=== PATIENT | female | born 1980 | race Caucasian/White ===

== ENCOUNTER → 2020-01-27 10:33 | Outpatient (CLI) | payer OTHER, SELFPAY ==
--- NOTE | ~2020-01-27 | XR_ITS ---
EXAMINATION: XR knee LT 3V DATE: 01/27/2020 11:10 INDICATION: Left knee pain. TECHNIQUE: 3 views of left knee were obtained. COMPARISON: None. FINDINGS: Bone alignment is normal. No fracture. There is mild osteoarthritis of medial and patellofe moral compartments. There is a small knee joint effusion. IMPRESSION: 1. Mild left knee osteoarthritis. 2. Small left knee joint effusion. Reviewed, dictated and finalized at location A. IN[facility] OPERATOR
== END ==
PROVIDERS: PCP Family Medicine; Visit Provider Physician Assistant
DX: M17.12 Unilateral primary osteoarthritis, left knee (principal); M25.462 Effusion, left knee
CPT/HCPCS: 73562

== ENCOUNTER → 2020-03-18 16:16 | Outpatient (CLI) | payer OTHER, SELFPAY ==
--- NOTE | ~2020-03-18 | MR_ITS ---
EXAMINATION: MR knee LT wo con DATE: 03/18/2020 17:05 INDICATION: Left knee pain and swelling. TECHNIQUE: Magnetic resonance imaging (MRI) of the left knee was performed without intravenous contra st. Sequences included coronal PD-weighted FSE, coronal PD-weighted FS FSE, sagittal T2-weighted FSE , sagittal PD-weighted FS FSE and axial PD weighted fat saturated FSE. COMPARISON: None. FINDINGS: Medial compartment: Medial meniscus is normal. Mild partial thickness cartilage loss with smooth chondral surface along t he medial tibial plateau. Mild chondral surface regular date along the anterior weightbearing medial femoral condyle. Lateral compartment: Lateral meniscus is normal. Partial-thickness cartilage loss with smooth chondral surface along the l ateral aspect of the posterior weightbearing lateral femoral condyle. Patellofemoral compartment: Deep chondral ulceration with mild underlying cortical irregularity along the inferior aspect of the medial trochlea. Deep chondral fissuring along the medial patellar facet with minimal subarticular ed olga. Ligaments and tendons: Anterior and posterior cruciate ligaments are normal. The medial collateral ligament and fibular hoda ateral ligament complex are normal. The extensor mechanism is normal. The visualized medial and later al hamstring tendons as well as the iliotibial band are normal. Fluid: Moderate size joint effusion with extension of fluid into a 4.0 x 1.2 x 1.3 cm Garcia's cyst. No loose osteochondral bodies identified. Osseous/other: Normal marrow signal. No fracture or abnormal marrow replacing process. IMPRESSION: 1. 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 2. Moderate-sized left knee joint effusion. 3. Small Garcia's cyst. Reviewed, dictated and finalized at location A. [facility] OPERATOR IMPRESSION: 1. Tricompartmental osteoarthritis, mild in the medial and patellofemoral dustin rtments and minimal in the lateral compartment with regions of high-grade chond romalacia at the medial trochlea and medial patellar facet. 2. Moderate-sized left knee joint effusion. 3. Small Garcia's cyst.
== END ==
PROVIDERS: PCP Family Medicine; Visit Provider Orthopaedic Surgery
DX: M25.562 Pain in left knee (principal); M17.12 Unilateral primary osteoarthritis, left knee; M25.462 Effusion, left knee; M71.22 Synovial cyst of popliteal space [Baker], left knee
CPT/HCPCS: 73721

== ENCOUNTER 2021-10-01 16:43 | Emergency (ER) | payer OTHER, BC, SELFPAY ==
--- NOTE | ~2021-10-01 | XR_ITS ---
EXAMINATION: XR chest 2V DATE: 10/01/2021 17:07 INDICATION: Shortness of breath TECHNIQUE: PA and lateral views of the chest are obtained. COMPARISON: 09/21/2005 FINDINGS: The lungs are free of acute opacities. No pleural effusion or pneumothorax. The cardiomedia stinal silhouette is normal. The visualized bones and soft tissues are unremarkable. IMPRESSION: 1. No acute cardiopulmonary abnormality. Reviewed, dictated and finalized at location B.
[2021-10-01 16:54] VITALS: BP 116/74; PULSE 90; RESP 16; TEMP 36.6; O2SAT 99
--- NOTE | 2021-10-01 17:06 | ED.GENADULT ---
HPI - General Adult General Chief complaint: Chest Pain Stated complaint: trouble breathing, right shoulder pain Time Seen by Provider: 10/01/21 17:00 Source: patient Mode of arrival: ambulatory Limitations: no limitations History of Present Illness HPI narrative: 41 y/o female presented for c/o right upper chest pain with deep breaths. States it feels like the pleurisy pain she has had in the past. Pain is near collarbone and into the neck. Denies pain with shoulder movement, numbness, tingling or weakness of the arm. Reports covid 2 weeks ago, continues to have mild symptoms. Denies hemoptysis, sob, wheezing, nausea, vomiting, diarrhea, constipation, fever or chills. Taking ibuprofen for pain. Related Data Allergies Allergy/AdvReac Type Severity Reaction Status Date / Time amoxicillin Allergy Unknown rash Verified 07/30/21 11:18 cephalexin Allergy Unknown Nausea Verified 07/30/21 11:18 Penicillins Allergy Unknown Pt does Verified 07/30/21 11:18 not know reaction Review of Systems Review of Systems: CONSTITUTIONAL: Denies body aches, fever, chills, or sweats. EYES: Denies visual changes, redness, or discharge. ENT: Denies rhinorrhea, congestion, sore throat, or otalgia. CARDIOVASCULAR: Denies chest pain, palpitations, or edema. RESPIRATORY: Reports cough, denies sob, wheezing. GASTROINTESTINAL: Denies abdominal pain, nausea, vomiting, or diarrhea. MUSCULOSKELETAL: Denies back pain, joint pain, or myalgia. NEUROLOGIC: Denies headache All systems reviewed & are unremarkable except as noted in HPI and below PMFSH Past Medical History Medical History Arthritis of knee, left BMI 30.0-30.9,adult Left knee pain Panniculitis Surgical History Surgical History H/O thyroidectomy Family History Family History Grandparent Diabetes mellitus Family history of hypercholesterolemia Hypertension Family history of cardiovascular disease Malignant neoplasm of prostate Father Family history of hypercholesterolemia Hypertension Mother Family history of cardiovascular disease Family history of atrial fibrillation Other Family history of colitis Social History Social History Smoking status: Never smoker Alcohol intake: current Drinks per week: 3 Alcohol use details: wine, liquor 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 Gender identity (if verbalized by the patient): Female Comments At time of signature, I have reviewed and agree with nursing past medical, surgical, social and family history unless otherwise noted. Please see nursing chart for further information. There is no relevant family history pertinent to the presenting complaint Exam Narrative: GENERAL: Well-appearing EYES: EOMI. No redness or drainage. Conjunctivae normal. ENT: Mucous membranes pink and moist. NECK: Normal AROM. Supple. nontender. CHEST: No respiratory distress. Lungs clear to all bear. Nontender chest with palpation. HEART: Regular rate and rhythm. No murmur appreciated. ABDOMEN: Soft, nontender, nondistended, normal active bowel sounds. SKIN: Warm, dry, no rash. Capillary refill normal. Normal skin turgor. NEURO: Alert and oriented x3. Gait steady. Course Course Emergency Course: Patient is aware of diagnosis, understands and agrees to treatment plan. Anticipatory guidance given. Patient agrees to follow-up as directed and is aware of reasons to seek care at the emergency department. Portions of this record may have been created with voice recognition software Level of Care: Express Care Visit Vital Signs Vital signs: Vital Signs Temperature 97.9 F 10/01/21 16:54 Pulse Rate 90 10/01/21 16:54 Respiratory Rate 16 10/01/21 16:5
== END 2021-10-01 17:34 | disposition home or self-care (01) ==
PROVIDERS: Emergency Provider Nurse Practitioner Family
DX: R07.81 Pleurodynia (principal); M17.12 Unilateral primary osteoarthritis, left knee; E89.0 Postprocedural hypothyroidism; Z86.16 Personal history of COVID-19; F32.A Depression, unspecified
CPT/HCPCS: 71046; 99213; G0463

== ENCOUNTER 2022-01-05 18:39 | Emergency (ER) | payer BC, SELFPAY ==
[2022-01-05 18:47] VITALS: BP 121/78; PULSE 93; RESP 16; TEMP 36.3; O2SAT 100
--- NOTE | 2022-01-05 19:09 | ED.URI ---
HPI - URI/Sore Throat General Chief Complaint: Upper Respiratory Infection Stated Complaint: SORE THROAT/COUGH/CHEST TIGHTNESS/FEVER Time Seen by Provider: 01/05/22 19:10 Source: patient and RN notes reviewed Mode of arrival: ambulatory Limitations: no limitations History of Present Illness HPI Narrative: 41-year-old female presents concern for cough, sore throat, ear pain started Monday. She reports she has been taking DayQuil and NyQuil. She reports fever, aches, chills, sweats. She denies known sick contacts. MD elicited complaint: cough, sore throat and nasal congestion Related Data Allergies Allergy/AdvReac Type Severity Reaction Status Date / Time amoxicillin Allergy Unknown rash Verified 01/05/22 19:12 cephalexin Allergy Unknown Nausea Verified 01/05/22 19:12 Penicillins Allergy Unknown Pt does Verified 01/05/22 19:12 not know reaction Review of Systems Review of Systems: CONSTITUTIONAL: Reports malaise, chills, sweats, or fever. EYES: Denies visual changes, redness, or discharge. ENT: Reports rhinorrhea, congestion, sinus pain, otalgia and sore throat. CARDIOVASCULAR: Denies chest pain, palpitations, or edema. RESPIRATORY: Reports cough. Denies dyspnea. GASTROINTESTINAL: Denies abdominal pain, nausea, vomiting, diarrhea SKIN: Denies rash or itching. MUSCULOSKELETAL: Reports myalgia. NEUROLOGIC: Denies headache. All systems reviewed & are unremarkable except as noted in HPI and below PMFSH Past Medical History Medical History Arthritis of knee, left BMI 30.0-30.9,adult Left knee pain Panniculitis Surgical History Surgical History H/O thyroidectomy Family History Family History Grandparent Diabetes mellitus Family history of hypercholesterolemia Hypertension Family history of cardiovascular disease Malignant neoplasm of prostate Father Family history of hypercholesterolemia Hypertension Mother Family history of cardiovascular disease Family history of atrial fibrillation Other Family history of colitis Social History Social History Smoking status: Never smoker Alcohol intake: current Drinks per week: 3 Alcohol use details: wine, liquor 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 There is no relevant family history pertinent to the presenting complaint Exam Narrative: GENERAL: Well-appearing, well-nourished, and in no acute distress. HEAD: Normocephalic EYES: PERRLA, conjunctivae clear ENT: Nares clear, turbinates edematous and erythematous, clear discharge. Mucous membranes moist. TM pearly guerra with dull light reflex bilaterally; no tragal tenderness. Oropharynx not erythematous without lesions. Tonsils not enlarged and without exudate, no drooling, no hoarseness, no trismus, uvula midline. NECK: Supple. No lymphadenopathy CHEST: Clear to auscultation, breath sounds equal. No wheezing, rhonchi, rales, or stridor. No respiratory distress, speaks in full sentences. HEART: Regular rate and rhythm. No murmur heard. SKIN: Warm, dry, no rash. NEURO: Alert and oriented x3. PSYCH: Normal mood and affect Course Course Emergency Course: Patient is aware of diagnosis, understands and agrees to treatment plan. Anticipatory guidance given. Patient agrees to follow-up as directed and is aware of reasons to seek care at the emergency department. Portions of this record may have been created with voice recognition software Level of Care: Express Care Visit Vital Signs Vital signs: Vital Signs Temperature 97.4 F L 01/05/22 18:47 Pulse Rate 93 01/05/22 18:4
== END 2022-01-05 19:54 | disposition home or self-care (01) ==
PROVIDERS: Emergency Provider Nurse Practitioner; PCP Family Medicine
DX: J11.1 Influenza due to unidentified influenza virus with other respiratory manifestations (principal); M17.12 Unilateral primary osteoarthritis, left knee; E89.0 Postprocedural hypothyroidism
CPT/HCPCS: 87081; 87804; 87880; 99213; G0463

== ENCOUNTER 2022-11-22 08:10 | Outpatient (RCR) | payer BC, SELFPAY ==
[2022-11-22 08:11] VITALS: BMI 34.7
[2022-11-22 10:07] VITALS: BMI 34.7
== END 2023-02-07 08:39 | disposition home or self-care (01) ==
LOC: ANHDMC 08:10
PROVIDERS: PCP Family Medicine; Visit Provider Physician Assistant
DX: E66.09 Other obesity due to excess calories (principal); Z68.34 Body mass index [BMI] 34.0-34.9, adult; Z71.3 Dietary counseling and surveillance
CPT/HCPCS: 97802

== ENCOUNTER 2023-01-11 09:03 | Outpatient (CLI) | payer BC, SELFPAY ==
[2023-01-11 09:51] LABS: Kit Draw Collected
== END 2023-01-11 09:04 | disposition home or self-care (01) ==
LOC: ANHGOSHLAB 09:07
PROVIDERS: PCP Family Medicine
DX: D72.828 Other elevated white blood cell count (principal)
CPT/HCPCS: 36415

== ENCOUNTER 2023-02-14 08:17 | Outpatient (CLI) | payer BC, SELFPAY ==
[2023-02-14 12:31] LABS: Kit Draw Collected
== END 2023-02-14 08:18 | disposition home or self-care (01) ==
LOC: ANHGOSHLAB 08:24
PROVIDERS: PCP Family Medicine
DX: D72.828 Other elevated white blood cell count (principal)
CPT/HCPCS: 36415

== ENCOUNTER 2023-03-07 08:19 | Outpatient (CLI) | payer BC, SELFPAY ==
[2023-03-07 15:15] LABS: Kit Draw Collected
== END 2023-03-07 08:20 | disposition home or self-care (01) ==
LOC: ANHGOSHLAB 08:22
PROVIDERS: PCP Family Medicine
DX: D72.828 Other elevated white blood cell count (principal)
CPT/HCPCS: 36415

== ENCOUNTER 2023-03-30 08:15 | Outpatient (CLI) | payer BC, SELFPAY ==
[2023-03-30 21:48] LABS: Kit Draw Collected
== END 2023-03-30 08:16 | disposition home or self-care (01) ==
LOC: ANHGOSHLAB 08:19
PROVIDERS: PCP Family Medicine
DX: D72.828 Other elevated white blood cell count (principal)
CPT/HCPCS: 36415

== ENCOUNTER 2023-04-13 08:32 | Outpatient (CLI) | payer BC, SELFPAY ==
[2023-04-17 09:49] LABS: Kit Draw Collected
== END 2023-04-13 08:33 | disposition home or self-care (01) ==
LOC: ANHGOSHLAB 08:35
PROVIDERS: PCP Family Medicine
DX: D72.828 Other elevated white blood cell count (principal)
CPT/HCPCS: 36415

== ENCOUNTER 2023-05-02 08:09 | Outpatient (CLI) | payer BC, SELFPAY ==
[2023-05-05 12:54] LABS: Kit Draw Collected
== END 2023-05-02 08:10 | disposition home or self-care (01) ==
LOC: ANHGOSHLAB 08:11
PROVIDERS: PCP Family Medicine
DX: D72.828 Other elevated white blood cell count (principal)
CPT/HCPCS: 36415

== ENCOUNTER 2023-08-16 13:33 | Outpatient (RCR) | payer BC, SELFPAY ==
[2023-05-29 15:55] LABS: Kit Draw Collected
[2023-07-06 20:01] LABS: Kit Draw Collected
[2023-07-31 19:40] LABS: Kit Draw Collected
[2023-08-16 15:58] LABS: Kit Draw Collected
== END 2023-08-27 23:59 | disposition home or self-care (01) ==
LOC: ANHGOSHLAB 13:33
PROVIDERS: PCP Family Medicine
DX: D72.828 Other elevated white blood cell count (principal)
CPT/HCPCS: 36415

== ENCOUNTER 2023-10-19 15:21 | Outpatient (CLI) | payer BC, SELFPAY ==
[2023-10-20 12:52] LABS: Kit Draw Collected
== END 2023-10-19 15:22 | disposition home or self-care (01) ==
LOC: ANHGOSHLAB 15:23
PROVIDERS: PCP Family Medicine
DX: Z76.89 Persons encountering health services in other specified circumstances (principal)
CPT/HCPCS: 36415

== ENCOUNTER 2023-11-20 13:08 | Outpatient (RCR) | payer BC, SELFPAY ==
[2023-10-20 12:52] LABS: Kit Draw Collected
[2023-11-21 08:00] LABS: Kit Draw Collected
== END 2024-01-17 23:59 | disposition home or self-care (01) ==
LOC: ANHGOSHLAB 13:08
PROVIDERS: PCP Family Medicine
DX: D72.828 Other elevated white blood cell count (principal)
CPT/HCPCS: 36415

== ENCOUNTER 2024-02-19 12:34 | Outpatient (RCR) | payer BC, SELFPAY ==
[2024-02-19 17:02] LABS: Kit Draw Collected
== END 2024-05-19 23:59 | disposition home or self-care (01) ==
LOC: ANHGOSHLAB 12:34
PROVIDERS: PCP Family Medicine
DX: D72.828 Other elevated white blood cell count (principal)
CPT/HCPCS: 36415

== ENCOUNTER 2024-03-16 10:44 | Emergency (ER) | payer BC, SELFPAY ==
[2024-03-16 11:18] VITALS: BP 130/94; PULSE 96; RESP 16; TEMP 36.3; O2SAT 99
--- NOTE | 2024-03-16 11:30 | ED_ITS ---
HPI - Eye Problem General Chief complaint: Eye Problems Stated complaint: EYE REDNESS/SWELLING Time Seen by Provider: 03/16/24 11:20 Source: patient Mode of arrival: ambulatory Limitations: no limitations History of Present Illness HPI Narrative: Shayna is a 43-year-old female patient presenting to the clinic today with complaints of left eye redness and swelling for the past 2 days. Reports that she had a pustule on the lower eyelid earlier this week and that has gone away but now she has redness and swelling to the left upper eyelid with tenderness. No drainage. No changes in makeup. Denies any eye pain or visual change. No fever Related Data Home Medications ?Medication ?Instructions ?Recorded ?Confirmed ?Last Taken ?Type ferrous sulfate 325 mg (65 mg 325 mg PO DAILY 03/09/23 01/25/24 Unknown History iron) tablet azelaic acid 15 % topical gel topical 01/25/24 01/25/24 Unknown History hydroxychloroquine 200 mg tablet mg PO 01/25/24 01/25/24 Unknown History leuprolide 3.75 mg intramuscular 3.75 mg IM MONTHLY 01/25/24 01/25/24 Unknown History syringe kit (Lupron Depot) levothyroxine 150 mcg tablet mcg PO 01/25/24 01/25/24 Unknown History metformin 500 mg tablet,extended mg PO 01/25/24 01/25/24 Unknown History release 24 hr prednisone 10 mg tablet mg PO 01/25/24 01/25/24 Unknown History tacrolimus 1 mg capsule, mg PO 01/25/24 01/25/24 Unknown History immediate-release Allergies Allergy/AdvReac Type Severity Reaction Status Date / Time amoxicillin Allergy Mild rash Verified 03/16/24 11:26 cephalexin Allergy Mild Rash Verified 03/16/24 11:26 Penicillins Allergy Mild Rash Verified 03/16/24 11:26 doxycycline AdvReac Intermediate Diarrhea Verified 03/16/24 11:26 Review of Systems Review of Systems: Pertinent positives per HPI. Patient denies any fever, chills, rash, headache, visual changes, dizziness, cough, shortness of breath, chest pain, palpitations, nausea, vomiting, diarrhea, constipation, abdominal pain, or any urinary issues. PMFSH Past Medical History Medical History IBS (irritable colon syndrome) Hx of erythema nodosum Panniculitis Arthritis of knee, left Knee effusion, left Surgical History Surgical History History of unilateral salpingectomy L laparoscopic/ endometriosis H/O thyroidectomy Family History Family History Grandparent Diabetes mellitus Family history of hypercholesterolemia Hypertension Family history of cardiovascular disease Malignant neoplasm of prostate Father Family history of hypercholesterolemia Hypertension Mother Family history of cardiovascular disease Family history of atrial fibrillation Other Family history of colitis Social History Social History Smoking status: Never smoker Alcohol intake: current Drinks per week: 3 Alcohol use details: wine, liquor Substance use type: does not use Lack of Transportation: No Lack of Food: Never True Current Housing: I Have Housing Concerned About Future Housing: No Difficulty Paying Gas/Electric Bills: No Difficulty Paying for Meds: No Currently Unemployed: No Education: Master's Degree or Higher Difficulty w/ Childcare or Family Care: No Living arrangements: with family Occupation/Education: occupation Additional occupation/education comments: [employer], [employer] Gender identity (if verbalized by the patient): Female Spiritual care concerns: No Comments At the time of my signature, I reviewed and agree with the nursing past medical, surgical, social, and family history. There is no relevant family history pertinent to the patient complaint. Exam Narrative: General: Well-developed, well nourished, in no apparent distress Head: Normocephalic, atraumatic Eyes: Pupils equally round and reactive to light bilaterally, EOM intact, sclera and conjunctive clear, no discharge, left upper eyelid red and swollen with tenderness to palpation over a external stye to the left upper lateral eyelid Ears: TMs intact and clear, ear canals clear, no drainage, grossly hearing normal. Nose: Nares patent, no discharge, no inflammation, no sinus tenderness. Mouth: Oral pharynx without lesions or masses, good dentition, MMM. Neck: Supple, trachea midline, no enlargement of anterior or posterior cervical nodes, no thyroid masses or goiter palpable. Cardio: Regular rate and rhythm, s1 and s2 normal, no murmur appreciated. Resp: Clear to auscultation bilaterally, no rhonchi, rales, wheezing or rubs Course Course Emergency Course: Portions of this record may have been created with voice recognition software. Level of Care: Express Care Visit Vital Signs Vital signs: Vital Signs Temperature 36.3 C L 03/16/24 11:18 Pulse Rate 96 03/16/24 11:18 Respiratory Rate 16 03/16/24 11:18 Blood Pressure 130/94 H 03/16/24 11:18 Pulse Oximetry 99 03/16/24 11:18 Temperature 36.3 C L 03/16/24 11:18 Pulse Rate 96 03/16/24 11:18 Respiratory Rate 16 03/16/24 11:18 Blood Pressure 130/94 H 03/16/24 11:18 Pulse Oximetry 99 03/16/24 11:18 Vital signs reviewed MDM - Eye Problem MDM Narrative Medical decision making narrative: At the time of visit patient is resting comfortably on the exam table. Patient appears to be nontoxic. Plan: I suspect patient has a her outer eyelid. Prescription for E-Mycin ointment was sent to the pharmacy. Supportive measures were discussed with the patient and they voiced understanding discharge instructions and agrees to treatment plan. Return precautions reviewed Differential Diagnosis Differential diagnosis: Likely corneal abrasion, conjunctivitis, acute iritis, hyphema, periorbital cellulitis, subconjunctival hemorrhage, glaucoma, corneal ulcer, ruptured globe and other (stye) Discharge Plan Discharge Clinical Impression: External hordeolum Qualifiers: Laterality: left Eyelid: upper Qualified Code(s): H00.014 - Hordeolum externum left upper eyelid Patient Disposition: Home, Self-Care Condition: Stable Instructions: Antibiotic Minnie, Stephanie (ED) Additional Instructions: Practice good hand washing techniques Avoid touching eyes Instill eye ointment as prescribed May use warm moist washcloth 4 times daily If eyes are matted shut-do not pry eyes open-use a warm moist cloth to loosen matting and wipe matter away from eye May take Tylenol/Motrin as needed for pain or fever May take Benadryl as needed for itching/swelling Follow-up with your PCP in 3-5 days if symptoms persist or sooner if they worsen Go to the emergency room if you develop any fever that is not controlled by Tylenol or Motrin, loss of vision, eye pain, increase eye swelling,visual changes, headache, confusion, lethargy, weakness, chest pain, or shortness of breath. Patient Language: Welsh Prescriptions: New erythromycin 5 mg/gram (0.5 %) ointment 0.5 inch EACH EYE TID 7 Days Qty: 3.5 0RF No Action metformin 500 mg tablet extended release 24 hr PO tacrolimus 1 mg capsule PO hydroxychloroquine 200 mg tablet PO prednisone 10 mg tablet PO levothyroxine 150 mcg tablet PO azelaic acid 15 % gel topical Lupron Depot 3.75 mg syringe kit 3.75 mg IM MONTHLY sertraline 100 mg tablet 100 mg PO DAILY Qty: 90 3RF ferrous sulfate 325 mg (65 mg iron) tablet 325 mg PO DAILY Follow-up/Referrals: Renee Abdalla MD [Primary Care Provider] - Time of Disposition: 11:32 Quality NIHSS Nursing Documentation ED NIHSS nursing documentation: reviewed/agree
== END 2024-03-16 11:35 | disposition home or self-care (01) ==
PROVIDERS: Emergency Provider Nurse Practitioner Family; PCP Family Medicine
DX: H00.014 Hordeolum externum left upper eyelid (principal); M17.12 Unilateral primary osteoarthritis, left knee; E89.0 Postprocedural hypothyroidism
CPT/HCPCS: 99213; G0463

== ENCOUNTER 2024-07-09 12:12 | Outpatient (CLI) | payer BC, SELFPAY ==
--- NOTE | ~2024-07-09 | XR_ITS ---
EXAMINATION: XR chest 2V 07/09/2024 12:24 INDICATION: Diverticulitis PROCEDURE: 2 view chest COMPARISON: Comparison to multiple prior studies sequentially, with oldest reviewed study dated 09/20. FINDINGS: The lungs are clear. The cardiomediastinal silhouette is within normal limits. There are no pleural effusions. There is no pneumothorax suspected. IMPRESSION: 1: NO ACUTE CARDIOPULMONARY DISEASE. Reviewed, dictated and finalized at location A.
== END 2024-07-09 12:13 | disposition home or self-care (01) ==
LOC: GOSHIMG 12:13
DX: M79.3 Panniculitis, unspecified (principal); J45.909 Unspecified asthma, uncomplicated; R21 Rash and other nonspecific skin eruption
CPT/HCPCS: 71046

== ENCOUNTER 2024-08-15 13:33 | Outpatient (RCR) | payer BC, SELFPAY | END 2024-09-10 23:59 | disposition home or self-care (01) | LOC: ANHGOSHLAB 13:33 | PROVIDERS: PCP Family Medicine | DX: D72.828 Other elevated white blood cell count (principal) | CPT/HCPCS: 36415 ==

== ENCOUNTER 2024-09-12 13:45 | Outpatient (RCR) | payer BC, SELFPAY | END 2024-12-11 23:59 | disposition home or self-care (01) | LOC: ANHGOSHLAB 13:45 | PROVIDERS: PCP Family Medicine | DX: D72.828 Other elevated white blood cell count (principal) | CPT/HCPCS: 36415 ==

== ENCOUNTER 2024-11-04 13:57 | Outpatient (CLI) | payer BC, SELFPAY ==
--- OUTSIDE RECORDS SUMMARY | 2024-07-04 09:00 | XMS_ITS ---
Author Organization [facility] [employer] [facility] [employer] [employer] Address [address] [facility] [address] [place], [place] [id number] Care Team Providers Care Croze Machine Operator Name Role Phone KELLEY GARCIA MD Primary Care Provider Unav ailable Peter, Akgun Unavailable [phone] Zobrist, Marj Unavailable [phone] ALLERGIES Allergen (clinical drug ingredient) Drug/Non Drug Allergy documented on EMR Reaction Allergy Type Onset Date Status amoxicillin amoxicillin Rash Drug Allergy Act carmen doxycycline doxycycline Severe diarrhea Drug Allergy Active Keflex (uncoded) Nausea/vomiting Allergy Active Penicillin (uncoded) Rash Allergy Active RESULTS Component Value Reference Range Notes Complement C4, Serum Reviewed date:07/18/2024 02:49:43 PM Interpretation: Performing Lab:[employer], [address] [facility], Phone - [phone], Director - Piyush Notes/Report: Complement C4, Serum 25 12-38 mg/dL CBC With Differential/Platel et Reviewed date:07/19/2024 09:53:13 AM Interpretation: Performing Lab:[employer], [address] [facility], Phone - [phone], Director - Piyush Notes/Report: WBC 11.4 3.4-10.8 x10E3/uL RBC 4.08 3.77-5.28 x10E6/uL Hemoglobin 12.1 11.1-15.9 g/dL Hematocrit 37.1 34.0-46.6 % MCV 91 79-97 fL MCH 29.7 26.6-33.0 pg MCHC 32.6 31.5-35.7 g/dL RDW 12.8 11.7-15.4 % Platelets 530 150-450 x10E3/uL Neutrophils 86 Not Estab. % Lymphs 11 Not Estab. % Monocytes 2 Not Estab. % Eos 0 Not Estab. % Basos 1 Not Estab. % Immature Cells Neutrophils (Absolute) 9.8 1.4-7.0 x10E3/uL Lymphs (Absolute) 1.3 0.7-3.1 x10E3/uL Monocytes(Absolute) 0.2 0.1-0.9 x10E3/uL Eos (Absolute) 0.0 0.0-0.4 x10E3/uL Baso (Absolute) 0.1 0.0-0.2 x10E3/uL Immature Granulocytes 0 Not Estab. % Immature Grans (Abs) 0.0 0.0-0.1 x10E3/uL NRBC Hematology Comments: Sed Rate - Westergren Reviewed date:07/18/2024 02:49:43 PM Interpretation: Performing Lab:[address], Phone - [phone], Director - [facility] Notes/Report: Sedimentation Rate-Westergren 14 0-32 mm/hr Complement C3, Serum Reviewed date:07/18/2024 02:49:43 PM Interpretation: Performing Lab:[address], Phone - [phone], Director - [facility] Notes/Report: Complement C3, Serum 127 82-167 mg/dL Rheumatoid Arthritis Factor Reviewed date:07/18/2024 02:49:43 PM Interpretation: Performing Lab:[address], Phone - [phone], Director - [facility] Notes/Report: Rheumatoid Factor (RF) <10.0 <14.0 IU/mL C-Reactive Protein, Quant Reviewed date:07/18/2024 02:49:43 PM Interpretation: Performing Lab:[address], Phone - [phone], Director - [facility] Notes/Report: C-Reactive Protein, Quant 2 0-10 mg/L RUTH,transfer serum, temp Reviewed date:07/18/2024 02:49:43 PM Interpretation: [facility]forming [facility], [address] [place] [address], Phone - [phone], Director - [facility] Notes/Report: RUTH, Serum 65 14-82 U/L Anticardiolip Ab, IgA/G/M, Q n Reviewed date:07/18/2024 02:49:43 PM Interpretation: Performing Lab:[facility], [address] [place] [address], Phone - [phone], Director - [facility] Notes/Report: Anticardiolipin Ab,IgG,Qn <9 0-14 GPL U/mL Negative: <15 Indeterminate: 15 - 20 Low-Med Positive: >20 - 80 High Positive: >80 Anticardiolipin Ab,IgM,Qn <9 0-12 MPL U/mL Negative: <13 Indeterminate: 13 - 20 Low-Med Positive: >20 - 80 High Positive: >80 Anticardiolipin Ab,IgA,Qn <9 0-11 APL U/mL Negative: <12 Indeterminate: 12 - 20 Low-Med Positive: >20 - 80 High Positive: >80 Beta-2 Glycoprotein I Ab,G,A ,M Reviewed date:07/18/2024 02:49:43 PM Interpretation: Performing Lab:[facility], [address] [place] [address], Phone - [phone], Director - [facility] Notes/Report: Beta-2 Glycoprotein I Ab, IgG <9 0-20 GPI IgG units The reference interval reflects a 3SD or 99th percentile interval, which is thought to represent a potentially clinically significant result in accordance with the International Consensus Statement on the classification criteria for definitive antiphospholipid syndrome (APS). J Thromb Haem 2006;4:295-306. Beta-2 Glycoprotein I Ab, IgA <9 0-25 GPI IgA units The reference interval reflects a 3SD or 99th percentile interval, which is thought to represent a potentially clinically significant result in accordance with the International Consensus Statement on the classification criteria for definitive antiphospholipid syndrome (APS). J Thromb Haem 2006;4:295-306. Beta-2 Glycoprotein I Ab, IgM <9 0-32 GPI IgM units The reference interval reflects a 3SD or 99th percentile interval, which is thought to represent a potentially clinically significant result in accordance with the International Consensus Statement on the classification criteria for definitive antiphospholipid syndrome (APS). J Thromb Haem 2006;4:295-306. CCP IgG Antibodies Reviewed date:07/18/2024 02:49:43 PM Interpretation: Performing Lab:[facility], Phone - [phone], Director - [facility] Notes/Report: Anti-CCP Ab, IgG/IgA 8 0-19 units Negative <20 Weak positive 20 - 39 Moderate positive 40 - 59 Strong positive >59 Comp. Metabolic Panel (14) Reviewed date:07/18/2024 02:49:56 PM Interpretation: Performing Lab:[facility], Phone - [phone], Director - [facility] Notes/Report: Glucose 172 70-99 mg/dL BUN 15 6-24 mg/dL Creatinine 0.97 0.57-1.00 mg/dL eGFR 75 >59 mL/min/1.73 BUN/Creatinine Ratio 15 9-23 Sodium 138 134-144 mmol/L Potassium 4.4 3.5-5.2 mmol/L Chloride 99 96-106 mmol/L Carbon Dioxide, Total 24 20-29 mmol/L Calcium 9.6 8.7-10.2 mg/dL Protein, Total 6.5 6.0-8.5 g/dL Albumin 4.4 3.9-4.9 g/dL Globulin, Total 2.1 1.5-4.5 g/dL Bilirubin, Total <0.2 0.0-1.2 mg/dL Alkaline Phosphatase 82 44-121 IU/L AST (SGOT) 15 0-40 IU/L ALT (SGPT) 12 0-32 IU/L CHHAYA Panel (CHHAYA+JUNIOR+Scl 70+Sj Troy+SjoSSB) Reviewed date:07/18/2024 02:51:09 PM Interpretation: Performing Lab:[facility], Phone - [phone], Director - [facility] Notes/Report: CHHAYA by IFA Rfx Titer/Pattern Negative Negative <1:80 Borderline 1:80 Positive >1:80 ICAP nomenclature: AC-0 For more information about Hep-2 cell patterns use ANApatterns.org, the official website for the International Consensus on Antinuclear Antibody (CHHAYA) Patterns (ICAP). GOVERNMENT PROGRAM MANAGER Antibodies <0.2 0.0-0.9 AI Priest Antibodies <0.2 0.0-0.9 AI Antiscleroderma-70 Antibodies <0.2 0.0-0.9 AI Sjogren's Anti-SS-A <0.2 0.0-0.9 AI Sjogren's Anti-SS-B <0.2 0.0-0.9 AI DS DNA-CRITHIDIA IFA W/REFLE X [facility] Reviewed date:07/18/2024 02:51:50 PM Interpretation: Performing Lab[facility] [place], [place] [address], Phone - [phone], Director - [facility] Notes/Report: dsDNA Crithidia luciliae IFA Negative Negative Urinalysis, Complete Reviewed date:07/18/2024 02:50:49 PM Interpretation: Performing Lab[facility] [place] [address], Phone - [phone], Director - [facility] Notes/Report: Specific [place] 1.011 1.005-1.030 pH 7.0 5.0-7.5 Urine-Color Yellow Yellow Appearance Clear Clear WBC Esterase Trace Negative Protein Negative Negative/Trace Glucose Negative Negative Ketones Negative Negative Occult Blood Negative Negative Bilirubin Negative Negative Urobilinogen,Semi-Qn 0.2 0.2-1.0 mg/dL Nitrite, Urine Negative Negative Microscopic Examination See below: Micr oscopic was indicated and was performed. Microscopic Examination WBC 0-5 0 - 5 /hpf RBC None seen 0 - 2 /hpf Epithelial Cells (non renal) >10 0 - 10 /hpf Epithelial Cells (renal) Casts None seen None seen /lpf Cast Type Crystals Crystal Type Mucus Threads Bacteria Few None seen/Few Yeast Trichomonas Comment Lupus Anticoag Confirm Consu lt Reviewed date:07/18/2024 02:51:43 PM Interpretation: Performing Lab[facility] [address] [facility], Phone - [phone], Director - [facility] Notes/Report: Prothrombin Time 11.1 Reference Range: 18 years and older: 9.1 - 12.0 INR 1.0 Reference Range: >1 month: 0.9 - 1.2 APTT 26.6 This test has not been validated for monitoring unfractionated heparin therapy. aPTT-based therapeutic ranges for unfractionated heparin therapy have not been established. Consider ordering Heparin anti-Xa (unfractionated). Reference Range: 18 years and older: 22.9 - 30.2 APTT 1:1 TECHNICAL ASST TNP Testing Not Indicated This test was developed and its performance characteristics determined by [facility]. It has not been cleared or approved by the US Food and Drug Administration. APTT 1:1 Saline TNP Testing Not Indicated This test was developed and its performance characteristics determined by [facility]. It has not been cleared or approved by the [place] Food and Drug Administration. Thrombin Time 19.4 Reference Range: 0.0 - 23.0 DRVVT Screen Seconds 30.5 Reference Range: <= 47.0 DRVVT Confirm Seconds TNP Testin g Not Indicated DRVVT Ratio TNP Testing Not Ind icated Hexagonal Phospholipid Neutral 2 This value is NEGATIVE. This is a qualitative assay and is therefore reported as positive for lupus anticoagulant or negative. The quantitative value is provided as an aid in diagnosis. Reference Range: 0 - 11 Platelet Neutralization 0.6 Reference Range: 0.0 - 3.0 This test was developed and its performance characteristics determined by [facility]. It has not been cleared or approved by the Food and Drug Administration. Anticardiolipin Ab, IgG <10 Reference Range: Negative: <15 Indeterminate: 15 - 20 Low to medium positive: >20 - 80 High positive: >80 Anticardiolipin Ab, IgM <10 Reference Range: Negative: <13 Indeterminate: 13 - 20 Low to medium positive: >20 - 80 High positive: >80 Beta-2 Glycoprotein I, IgG <10 The reference interval reflects a 3SD or 99th percentile interval. Reference Range: Negative: <21 Beta-2 Glycoprotein I, IgM <10 The reference interval reflects a 3SD or 99th percentile interval. Reference Range: Negative: <33 Beta-2 Glycoprotein I, IgA <10 The reference interval reflects a 3SD or 99th percentile interval. Reference Range: Negative: <26 LAC Interpretation A lupus anticoagulant is not detected. All antiphospholipid antibodies evaluated are normal. As antibody titers may fluctuate with time, repeat testing may be indicated. Please contact [facility] if further clarification is needed. Pathologist Interpretation TNP All results are within the adult reference range and therefore pathology interpretation is not indicated. Complement Component 5 Reviewed date:07/18/2024 02:50:54 PM Interpretation: Performing Lab:[facility], [address] [facility], Phone - [phone], Director - Piyush Notes/Report: Complement Component 5 16 7-20 mg/dL Normal C5 concentration suggests sufficient C5 protein level. In rare cases, C5 complement protein can be nonfunctional but present at normal levels. If clinically indicated, testing for C5 functional activity is suggested (test code [id number]). ANCA Profile Reviewed date:07/19/2024 10:08:21 AM Interpretation: Performing Lab:[facility], [address] [facility], Phone - [phone], [facility] Notes/Report: Anti-MPO Antibodies 1.3 0.0-0.9 units Anti-PR3 Antibodies <0.2 0.0-0.9 units Cytoplasmic (C-ANCA) <1:20 Neg:<1:20 titer Perinuclear (P-ANCA) <1:20 Neg:<1:20 titer The presence of positive fluorescence exhibiting P-ANCA or C-ANCA patterns alone is not specific for the diagnosis of Roacel's Granulomatosis (WG) or microscopic polyangiitis. Decisions about treatment should not be based solely on ANCA IFA results. The International ANCA Group Consensus recommends follow up testing of positive sera with both OH-3 and MPO-ANCA enzyme immunoassays. As many as 5% serum samples are positive only by EIA. Ref. AM J Clin Pathol 1999;111:507-513. Atypical pANCA <1:20 Neg:<1:20 titer The atypical pANCA pattern has been observed in a significant percentage of patients with ulcerative colitis, primary sclerosing cholangitis and autoimmune hepatitis. REASON FOR VISIT Joint pains MEDICATIONS Medication SIG (Take, Route, Frequency, Duration) Notes Start Date End Date Status vitamin E 400IU Active iron oral 10.5mg Active Vitamins as directed Active Lovenox 40 mg/0.4 mL as directed subcutaneously once a day Active Vitamin D 4,000IU Active magnesium glycinate 200 mg 2 tab(s) orally once a day Active DHEA 25 mg 1 cap(s) orally once a day Active Alpha Lipoic Acid 100 mg 1 cap(s) orally 2 times a day Active Nicotinamide Dietary Supplement 300mg Active fish oil oral EPA 600mg DHA 450mg Active sertraline 100 mg 1 tab(s) orally once a day Active CoQ10 100 mg 3 cap(s) orally once a day Active Curcumin 95 500 mg 1 cap(s) orally once a day Active Melatonin 5 mg 1 tab(s) orally once a day Active Metanx Vitamin B Complex 1 cap(s) orally once a day Active aspirin 81 mg 1 tab(s) orally once a day Active Probiotics orally as directed Active prednisone 10 mg 1 tab(s) orally once a day Active levothyroxine 137 mcg (0.137 mg) 1 tab(s) orally once a day Active metFORMIN 500 mg 1 tab(s) orally 2 ti mes a day Active Plaquenil 200 mg 1 tab(s) orally twic e a day Active Calcium 600 mg Activ e VITAL SIGNS BMI 36.21 kg/m2 07/04/2024 Blood pressure systolic 127 mm Hg 07/05/19 25 Blood pressure diastolic 82 mm Hg 025 Heart Rate 115 /min 07/04/2024 Height 64 in 07/04/2024 Weight 211 lbs 07/04/2024 Encounters Encounter Location Date Provider Diagnosis [facility] 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 On prednisone 10mg, and HCQ per GEOSPATIAL IMAGE ANALYST. Referred back to rule out CTD given facial rash. Prior serologies were negative for inflammatory arthropathy/CTD . Will re-evaluate today. Check chest Xray to rule out sarcoidosis. F/u scheduled for 10 days. 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 On prednisone 10mg, and HCQ per GEOSPATIAL IMAGE ANALYST. Referred back to rule out CTD given facial rash. Prior serologies were negative for inflammatory arthropathy/CTD . Will re-evaluate today. Check chest Xray to rule out sarcoidosis. F/u scheduled for 10 days. 07/04/2024 Facial rash (ICD-10 - R21) 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 On prednisone 10mg, and HCQ per GEOSPATIAL IMAGE ANALYST. Referred back to rule out CTD given facial rash. Prior serologies were negative for inflammatory arthropathy/CTD . Will re-evaluate today. Check chest Xray to rule out sarcoidosis. F/u scheduled for 10 days. 07/04/2024 Polyarthralgia (ICD-10 - M25.50) 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 On prednisone 10mg, and HCQ per GEOSPATIAL IMAGE ANALYST. Referred back to rule out CTD given facial rash. Prior serologies were negative for inflammatory arthropathy/CTD . Will re-evaluate today. Check chest Xray to rule out sarcoidosis. F/u scheduled for 10 days. PLAN OF TREATMENT Medication Medication Name Sig Start Date Stop Date Notes vitamin E 400IU iron oral 10.5mg Vitamins as directed Vitamin D 4,000IU magnesium glycinate 200 mg 2 tab(s) oral ly once a day DHEA 25 mg 1 cap(s) orally once a day Alpha Lipoic Acid 100 mg 1 cap(s) orally 2 times a day Nicotinamide Dietary Supplement 300mg fish oil oral EPA 600mg DHA 450mg sertraline 100 mg 1 tab(s) orally once a day CoQ10 100 mg 3 cap(s) orally once a day Curcumin 95 500 mg 1 cap(s) orally once a day Melatonin 5 mg 1 tab(s) orally once a day prednisone 10 mg 1 tab(s) orally once a day levothyroxine 137 mcg (0.137 mg) 1 tab(s) orally once a day metFORMIN 500 mg 1 tab(s) orally 2 times a day Plaquenil 200 mg 1 tab(s) orally twic e a day Pending Test Test Name Order Date ANCA Panel w/MPO/PR3 w/reflex to titer(D O NOT USE) 07/04/2024 X ray : Chest, PA Lateral- outside order 07/04/2024 Next Appt Details Follow Up: 2 Weeks, Reason: Progress Notes * Examination Category Sub-Category Detail Notes Category Not es General Constitutional: No acute distress HEENT: PERRLA, Neck supple, Normal sclerae and conjunctivae Abdomen: soft, no organomegal y or masses /Rectal: not done Skin: No cutaneous lesions . No subcutaneous nodules noted in the 4 extremities, erythema to bilateral cheeks Neurological: No focal neurologica l findings Heme/Lymphatic: No cervical, axillar y, or inguinal adenopathy Psych: Alert, oriented x 3, Normal affect Musculoskeletal: Normal strength. No muscle atrophy Joint Exam Shoulders No swelling. No tenderness. NROM. Elbows No swelling. No tend erness. NROM. Wrists No swelling. No tend erness. NROM. Hips No tenderness, joycelyn l ROM, no instability or deformity Knees No swelling, no tend erness, NROM. No instability or deformity Ankles No swelling, no tend erness, NROM., No instability or deformity. All MCPs No swelling, no tend erness, no deformity unless noted below. All PIPs No swelling, no tend erness, no deformity unless noted below. All DIPs No swelling, no tend erness, no deformity unless noted below. All MTPs No swelling, no tend erness, NROM, no deformity unless noted below. History and Physical Notes * HPI (History of Present Illness) Category Sub-Category Detail Notes Category Not es Rheumatology Joint pain Ayanna returns today for CE visit after being referred by GEOSPATIAL IMAGE ANALYST to rule out CTD. She has a hx of infertility. Multiple IVF failures. Currently treated with HCQ and Prednisone 10mg for hx of panniculitis and EN. Seeing [facility]. She reports that she has high levels of CD 3, and natural killer cells. Apparently was advised she may need IVIG. She reports a rash to her face as well as whitish discoloration to her feet. Joints are achy at times, especially hands, feet and left knee. She also mentions restless leg symptoms, but her arms always feel like they need to be moving. Hands tingle at times. 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 Has never had a NCS. She does use a brace at night which helps some. She reports dry eyes. 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 Prior serologies from 2022-Negative RF, CCP abs, sed rate, CRP, CHHAYA profile, dsDNA, Complements, HLA-B27, APLS abs, and RUTH. Prior Xrays 2022of the SI joints, Chest, bilateral hands and feet were unremarkable. Joint swelling dry eyes dry mouth Raynaud's/ dicoloration of fingers rash photosensitivity Psoriasis Iritis, conjuctivitis, uveiitis Crohn's/ ulcerative colitis Family History of Rheumatic Disease other medical conditions panniculitis DMARD's/Biologics Methotrexate Plaquen il color changes in fingers or toes surgery 2011 thyroid removed Physical Examination Category Sub-Category Detail Notes Section Note s MDHAQ Summary Function (0-10):: 0.7 Pain (0-10):: 3.5 Patient Global Assessment of Disease Activity (0 -10):: 7 RAPID3 Score (0-30):: 11.2 Physician Global Assessment of Disease Activity (0-10):: 2 Prognosis Good w/tx Erosive Damage No
--- OUTSIDE RECORDS SUMMARY | 2024-07-15 11:09 | XMS_ITS ---
Author Organization [employer] [employer] Address [address] [place], [place] [id number] Care Team Providers Care Accounting Methods Analyst Name Role Phone KELLEY GARCIA MD Primary Care Provider Unav ailable Presley Green Unavailable [phone] Encounters Encounter Location Date Provider Diagnosis [facility] [address], [address] [place], [place] [id number] 07/15/2024 Presley Green PLAN OF TREATMENT No Information
--- OUTSIDE RECORDS SUMMARY | 2024-07-23 10:40 | XMS_ITS ---
Author Organization [facility] [employer] [facility] Address [address] [facility] [address] [place], [place] [id number] Care Team Providers Care [employer] Officer Name Role Phone KELLEY GARCIA MD Primary Care Provider Unav ailable PeterJaspreet pattersonsumit Unavailable [phone] Marj Carmona Unavailable [phone] ALLERGIES Allergen (clinical drug ingredient) Drug/Non Drug Allergy documented on EMR Reaction Allergy Type Onset Date Status amoxicillin amoxicillin Rash Drug Allergy Act carmen doxycycline doxycycline Severe diarrhea Drug Allergy Active Keflex (uncoded) Nausea/vomiting Allergy Active Penicillin (uncoded) Rash Allergy Active REASON FOR VISIT 2 wks f/u MEDICATIONS Medication SIG (Take, Route, Frequency, Duration) Notes Start Date End Date Status metFORMIN 500 mg 1 tab(s) orally 2 ti mes a day Active prednisone 10 mg 1 tab(s) orally once a day Active levothyroxine 137 mcg (0.137 mg) 1 tab(s) orally once a day Active Probiotics orally as directed Active Plaquenil 200 mg 1 tab(s) orally twic e a day Active Lovenox 40 mg/0.4 mL as directed subcutaneously once a day Active aspirin 81 mg 1 tab(s) orally once a day Active vitamin E 400IU Active Metanx Vitamin B Complex 1 cap(s) orally once a day Active Calcium 600 mg Activ e Alpha Lipoic Acid 100 mg 1 cap(s) orally 2 times a day Active DHEA 25 mg 1 cap(s) orally once a day Active Vitamin D 4,000IU Active fish oil oral EPA 600mg DHA 450mg Active Nicotinamide Dietary Supplement 300mg Active Vitamins as directed Active Melatonin 5 mg 1 tab(s) orally once a day Active Curcumin 95 500 mg 1 cap(s) orally once a day Active iron oral 10.5mg Active magnesium glycinate 200 mg 2 tab(s) orally once a day Active sertraline 100 mg 1 tab(s) orally once a day Active CoQ10 100 mg 3 cap(s) orally once a day Active VITAL SIGNS BMI 36.04 kg/m2 07/23/2024 Blood pressure systolic 133 mm Hg 07/24/19 25 Blood pressure diastolic 78 mm Hg 025 Heart Rate 105 /min 07/23/2024 Height 64 in 07/23/2024 Weight 210 lbs 07/23/2024 Encounters Encounter Location Date Provider Diagnosis [facility], [address] [place], [place] [id number] 07/23/2024 Marj Carmona Endometritis N71.9 and Panniculitis M79.3 ASSESSMENTS Encounter Date Diagnosis Assessment Notes Treatment Notes Treatment Clinical Notes Section Notes 07/23/2024 Endometritis (ICD-10 - N71.9) 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 Currently on prednisone 10mg, and HCQ per CASH ON DELIVERY CLERK. Serologies for inflammatory arthropathy/CTD were unremarkable. At this time, I do not suspect autoimmune rheumatologic disease. Advised that we can monitor MPO-3 abs, but likely cross reactive. I do not suspect vasculitis. Chest Xray negative. 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 Currently on prednisone 10mg, and HCQ per CASH ON DELIVERY CLERK. Serologies for inflammatory arthropathy/CTD were unremarkable. At this time, I do not suspect autoimmune rheumatologic disease. Advised that we can monitor MPO-3 abs, but likely cross reactive. I do not suspect vasculitis. Chest Xray negative. PLAN OF TREATMENT Medication Medication Name Sig Start Date Stop Date Notes metFORMIN 500 mg 1 tab(s) orally 2 ti mes a day prednisone 10 mg 1 tab(s) orally once a day levothyroxine 137 mcg (0.137 mg) 1 tab(s) orally once a day Plaquenil 200 mg 1 tab(s) orally twic e a day Lovenox 40 mg/0.4 mL as directed subcutaneously once a day aspirin 81 mg 1 tab(s) orally once a day Metanx Vitamin B Complex 1 cap(s) orally once a day Calcium 600 mg fish oil oral EPA 600mg DHA 450mg Nicotinamide Dietary Supplement 300mg Vitamins as directed iron oral 10.5mg magnesium glycinate 200 mg 2 tab(s) orally once a day sertraline 100 mg 1 tab(s) orally once a day CoQ10 100 mg 3 cap(s) orally once a day Next Appt Details Follow Up: prn, Reason: Progress Notes * Examination Category Sub-Category [...] Rheumatology Joint pain Ayanna returns today for first follow up and further recommendations after CE visit for infertility issues. She has a long hx of infertility. Multiple IVF failures. Currently treated with HCQ and Prednisone 10mg for hx of panniculitis and EN. Seeing [facility]. She reports that she has high [...] she tells me she has anti-ovarian abs. Serologies from last visit including CHHAYA profile, inflammatory markers, complements, RUTH, dsDNA, APLS abs, RF and CCP abs were all negative. ANCA negative, was noted to have low positive MPO-3 ab 1.3 with negative NV-3 abs. Chest Xray normal. Joint swelling dry eyes dry mouth Raynaud's/ dicoloration of fingers rash photosensitivity Psoriasis Iritis, conjuctivitis, uveiitis Crohn's/ ulcerative colitis Family History of Rheumatic Disease other medical conditions panniculitis DMARD's/Biologics Methotrexate Plaquen [place] color changes in fingers or toes surgery 2011 thyroid removed Physical Examination Category Sub-Category Detail Notes Section Note s MDHAQ Summary Function (0-10):: 0 Pain (0-10):: 4 Patient Global Assessment of Disease Activity (0 -10):: 2.5 RAPID3 Score (0-30):: 6.5 Physician Global Assessment of Disease Activity (0-10):: 1 Prognosis Good w/o tx Erosive Damage No
--- OUTSIDE RECORDS SUMMARY | 2024-11-04 13:30 | XMS_ITS | Encounter Summary ---
Author Organization [facility] Address [address] [place] [address] Care Team Providers Care Director Veterinary Name Role Phone Renee Abdalla MD Primary Care Provider [phone] Reason for Visit * Reason Comments Establish Care Encounter Details Date Type Department Care Team (Late st Contact Info) Description 11/04/2024 1:30 PM CDT Office Visit [facility] Oncology and Hematology - [place] [address] [facility] [address] [place] [address] Christpoher Leong MD [address] [facility] [address] [place] [address] Iron deficiency anemia, unspecified iron deficiency anemia type (Primary Dx) Social History Tobacco Use Types Packs/Day Years Used Date Smoking Tobacco: Never Smokeless Tobacco: Never Tobacco Cessation:Counseling Given: Not Answered Alcohol Use Standard Drinks/Week Comments Yes 0 (1 standard drink = 0.6 oz pur e alcohol) Feeling Safe Answer Date Recorded Are you in a relationship wi th someone who hurts you emotionally and/or physically? Patient unable to answer 12/14/2023 Food Insecurity Answer Date Recorded Patient needs follow up regardin 06/01/2024 Transportation Needs Answer Date Record ed Patient needs follow up regardin 06/01/2024 Housing Stability Answer Date Recorded Social/Environmental Concerns No concerns Utility Needs Answer Date Recorded Patient needs follow up regardin 06/01/2024 Comments No Sex and Gender Information Value Date Recorded Sex Assigned at Not on file Legal Sex Female 3:51 PM CDT Gender Identity Not on file Sexual Orientation Not on file Occupation Industry Job Start Date Job End Date Not on file Not on file Not on file Not on file documented as of this encounter Last Filed Vital Signs Vital Sign Reading Time Taken Comments Blood Pressure 102/91 11/04/2024 1:21 PM CDT Pulse 89 11/04/2024 1:21 PM CDT Temperature 36.7 C (98.1 F) 11/04/2024 1:21 PM CDT Respiratory Rate 14 11/04/2024 1:21 PM CDT Oxygen Saturation 97% 11/04/2024 1:21 PM CDT Inhaled Oxygen Concentration - - Weight 94.2 kg (207 lb 9.6 oz) 11/04/2024 1:21 P M CDT Height - - Body Mass Index 35.63 10/28/2024 2:58 PM CDT documented in this encounter Progress Notes * Christopher Leong MD - 11/04/2024 1:36 PM CDT Hematology-oncology consult Note Requesting Physician Renee Abdalla MD Primary Care Physician Renee Abdalla MD Problem list Patient Active Problem List Diagnosis Code Panniculitis M79.3 Erythema nodosum L52 Infertility, female N97.9 Endometritis N71.9 Previous TREATMENT ? Measurable Disease ? Reason for Visit Ayanna Sampson is a 44 y.o. female who was referred for consultation for low ferritin. History of present illness This is a 44-year-old female with history of infertility and has been trying in vitro fertilization for the last 2 to 3 years duration. She has gained 50 pound weight in 3 years but since started Zepbound she lost 15 pounds in about last 2 or 3 months. She denies any bleeding other than heavy menstrual bleeding that last for about 5 to 7 days. She is been taking Slow Fe 45 mg once a dayfor about 1 year duration. Denies any melena hematochezia. Denies any hematuria. Denies being a vegetarian. She has been complaining of tiredness and fatigue and symptoms of restless leg syndrome with lack of sleep. Her labs from February 2024 showed serum ferritin of 13 with normal hemoglobin. She denies any other new complaints. Past Medical History Past Medical History: Diagnosis Date Anxiety and depression Fibroid Hypothyroidism Insomnia Motion sickness Ocular migraine Patient denies relevant medical history Pleurisy 3 flares Raynaud's syndrome Restless leg syndrome Rosacea Small intestinal bacterial overgrowth (SIBO) Thrombophilia Surgical History Past Surgical History: Procedure Laterality Date HX ENDOMETRIAL BIOPSY 06/01/2022 chronic endometritis, repeat 07/26/2022-neg for endometritis HX IN VITRO FERTILIZATION HX OPERATIVE HYSTEROSCOPY septum resection HX THYROIDECTOMY 02/06/2010 [place] CHROMOTUBATION OVIDUCT W/MATERIALS N/A 12/14/2023 CHROMOPERTUBATION LAPAROSCOPIC performed by Nikhil Anderson MD at [facility] [place] LAPAROSCOPY W/RMVL ADNEXAL STRUCTURES Right 12/14/2023 SALPINGECTOMY LAPAROSCOPIC performed by Nikhil Anderson MD at [facility] [place] [facility] [place] LAPS FULG/EXC OVARY VISCERA/PERITONEAL SURFACE N/A 12/14/2023 ENDOMETRIOSIS EXCISION LASER LAPAROSCOPIC performed by Nikhil Anderson MD at [facility] [place] [facility] MAIN Medications Current Outpatient Medications Medication Sig Dispense Refill Zepbound 5 mg/0.5 mL Pen Injector Inject 2.5 mg by subcutaneous injection every 7 days. metFORMIN (GLUCOPHAGE) 500 mg tablet Take 500 mg by mouth 2 times daily with meals. hydroxychloroquine (PLAQUENIL) 200 mg tablet Take 200 mg by mouth daily. aspirin (LOUISE CHEWABLE) 81 mg Tablet, Chewable Take 81 mg by mouth daily. ergocalciferol, vitamin D2, (VITAMIN D ORAL) Take by mouth. ferrous sulfate (IRON ORAL) Take by mouth. omega-3 fatty acids-fish oil 300-1,000 mg Capsule Take by mouth daily. melatonin 5 mg Tablet Take 3 mg by mouth nightly as needed. levothyroxine 137 mcg tablet Take 150 mcg by mouth daily in the morning. sertraline (ZOLOFT) 100 mg tablet Take 100 mg by mouth daily. enoxaparin (LOVENOX) 40 mg/0.4 mL injection Inject 40 mg by subcutaneous injection one time only. (Patient not taking: Reported on 11/04/2024) dexAMETHasone (DECADRON) 0.75 mg Tablet Take 1 Tablet by mouth daily. (Patient not taking: Reportedon 11/04/2024) Pregnyl 10,000 unit Recon Soln Inject 10,000 Units by intramuscular injection every Monday, Monday, and Monday. (Patient not taking: Reported on 11/04/2024) tacrolimus (PROGRAF) 1 mg capsule Take 1 mg by mouth 3 times daily. (Patient not taking: Reported on 11/04/2024) oxyCODONE (ROXICODONE) 5 mg tablet Take 1 Tablet (5 mg) by mouth every 4 hours as needed. Max DailyAmount: 30 mg (Patient not taking: Reported on 11/04/2024) 10 Tablet 0 predniSONE (DELTASONE) 10 mg tablet Take 10 mg by mouth daily. (Patient not taking: Reported on 11/04/2024) vitamin E 1,000 unit Capsule Take 1,000 Units by mouth daily. NADH, BULK, MISC by Misc.(Non-Drug; Combo Route) route. (Patient not taking: Reported on 11/04/2024) CALCIUM ORAL Take by mouth. (Patient not taking: Reported on 11/04/2024) acai/chromium/tea/caffeine/enz (ACAI GRAVES DIET ORAL) Take by mouth. (Patient not taking: Reported on 03/01/2024) VIT-IRON FUM-FOLIC AC ORAL Take by mouth daily. (Patient not taking: Reported on 11/04/2024) No current facility-administered medications for this visit. Allergies Allergies Allergen Reactions Amoxicillin Hives Cephalexin Hives Doxycycline Diarrhea and Nausea and Vomiting Penicillins Hives Penicillins Rash Amoxicillin Rash Cephalexin Nausea and Vomiting Immunizations: There is no immunization history on file for this patient. Family History Family History Problem Relation Name Age of Onset Hypertension Father Healthy Mother Liver Cancer Maternal Grandmother Colon Cancer Maternal Grandmother Hereditary non-polyposis colon cancer Maternal Grandmother Prostate Cancer Maternal Grandfather Psoriasis Paternal Grandmother Heart Disease Paternal Grandfather Breast Cancer Neg Hx Ovarian Cancer Neg Hx Social History Social History Tobacco Use Smoking status: Never Smokeless tobacco: Never Substance Use Topics Alcohol use: Yes Review of Systems Constitutional: Patient did not mention fever; no night sweats; no anorexia; 15 pound weight loss recently but gained 50 pounds in last 3 years duration; complain of tiredness and fatigue NEENT: Patient did not mention headache; no change in vision; no change in hearing; no sore throat;no dysphagia Respiratory: Patient did not mention shortness of breath; no pleuritic chest pain; no cough; no hemoptysis Cardiac: Patient did not mention cardiac-like chest pain; no palpitations; no orthopnea; no PND; noDOE Breasts: Patient did not mention tenderness; no masses GI: Patient did not mention abdominal pain; no nausea; no vomiting; no diarrhea; no hematochezia; no melena : Patient did not mention dysuria; no frequency; no hesitancy; no hematuria COMPLIANCE LEAD: Musculosketetal: Patient did not mention bone pain; no arthralgia; no joint swelling; no myalgia; Skin: Patient did not mention pruritis; no rash; no petechiae; no ecchymoses Endocrine: Patient did not mention polydipsia; no polyuria; no unusual weight gain Neuro: Patient did not mention headache; no change in vision; no sensory changes; no muscle weakness; no confusion; no seizures Psych: Patient did not mention anxiety; no depression; Physical Exam Vitals: As per nursing note Constitutional: Well developed, well nourished, no acute distress, non-toxic appearance Teeth and gum. No signs of infection or swelling. Eyes: PERRL, conjunctiva normal HEENT: Atraumatic, external ears normal, nose normal, oropharynx moist, no pharyngeal exudates. no sinus tenderness Neck- normal range of motion, no tenderness, supple Cardiovascular: Normal rate, normal rhythm, no murmurs, no gallops, no rubs GI: Soft, nondistended, normal bowel sounds, nontender, no splenomegaly, no hepatomegaly, no mass, no rebound, no guarding : No costovertebral angle tenderness Musculoskeletal: No edema, no tenderness, no deformities. Back- no tenderness Integument: Well hydrated, no rash, Digits and nails inspection normal Lymphatic: No lymphadenopathy noted Neurologic: Alert & oriented x 3, CN 2-12 normal, normal motor function, normal sensory function, no focal deficits noted Psychiatric: Speech and behavior appropriate ? labs No results found for this or any previous visit (from the past 24 hours). Labs from February 2024 showed serum ferritin of 13 creatinine 0.9 platelets 383,000 hemoglobin 13.4WBC 8.1 Pathology ? Imaging & Other Studies Performance Status? Assessment / Plan: ? Iron deficiency without anemia. Patient is a 44-year-old slightly obese female with history of 1 fertility has been trying in vitro fertilization for last 2 years duration has gained significant amount of weight. She has been on Zepbound recently with some weight loss. Denies any bleeding including melena hematochezia. She has her menstrual bleeding that last for about 7 days but 5 to 6days of heavy bleeding. She denies being a vegetarian. Denies any previous stomach surgeries. She is taking iron 45 mg once a day for 1 year duration without any improvement in her symptoms. Her irondeficiency is secondary to heavy menstrual bleeding. She will continue to follow-up with benefits technician for further management of heavy menstrual bleeding and infertility. Due to her symptoms I will recommend iron infusion but will check labs including CBC, iron panel, CMP and soluble transferrin receptor today. I have also suggested to increase oral iron 45 mg to twice a day. I will discuss the labs with patient next week. I have answered all the questions to patient satisfaction. Depression. Patient is on Zoloft. Hypothyroidism. She is on levothyroxine. Infertility. Patient has been trying in vitro fertilization without any success. She will be managed by the benefits technician. Thank you very much for allowing me to participate in Ayanna Sampson's evaluation and management. Please feel free to contact if I can be of any further assistance in your patient???s care requiring hematology or oncology evaluation. Sincerely, ? ? Christopher Leong M.D. cell TOBACCO COUNSELING She is not a tobacco/nicotine user. Christopher Leong MD ,11/04/2024 2:16 PM ? Total time spent 60 minutes, two third of the total time spent counseling patient [id number]. CC:?Renee Abdalla MD documented in this encounter Plan of Treatment Upcoming Encounters Date Type Department Care Team (Late st Contact Info) Description 11/12/2024 4:30 PM CDT Telephone Check Up [facility] Oncology and Hematology - [place] [address] [facility] [address] [place] [address] Christopher Leong MD [address] [facility] [address] [place] [address] Scheduled Orders Name Type Priority Associated Diagnoses Orde r Schedule CBC WITH DIFFERENTIAL Lab Stat Iron deficiency anemia, unspecified iron deficiency anemia type Expected: 11/04/2024, Expires: 11/04/2025 COMPREHENSIVE METABOLIC PANEL Lab Stat Iron deficiency anemia, unspecified iron deficiency anemia type Expected: 11/04/2024, Expires: 11/04/2025 FERRITIN Lab Routine Iron deficiency anemia, unspecified iron deficiency anemia type Expected: 11/04/2024, Expires: 11/04/2025 IRON, TIBC, AND PERCENT SATURATION Lab Routine Iron deficiency anemia, unspecified iron deficiency anemia type Expected: 11/04/2024, Expires: 11/04/2025 TRANSFERRIN RECEPTOR TFR SOLUBLE Lab Routine Iron deficiency anemia, unspecified iron deficiency anemia type Expected: 11/04/2024, Expires: 11/04/2025 documented as of this encounter Visit Diagnoses Diagnosis Iron deficiency anemia, unspecified iron deficiency anemia type- Primary documented in this encounter Care Teams Director Veterinary Relationship Specialty Start Date End Date Renee Abdalla MD [facility] [address] [address] PCP - General Family Practice 06/26/22 documented as of this encounter
[2024-11-04 14:09] LABS: Hematocrit 36.4 % (37.0-47.0); Hemoglobin 12.0 g/dL (12.0-15.0); Immature Granulocyte Percent A 0.3 % (0-0.5); Lymphocytes Absolute Auto 1.92 K/mm3 (0.9-3.2); Mean Corpuscular HGB Conc 33.0 g/dl (32-36); Mean Corpuscular Hemoglobin 29.6 pg (26-34); Mean Corpuscular Volume 89.9 fl (80-100); Nucleated Red Blood Cells Absolute Auto 0.000 K/mm3 (0.0-0.012); Nucleated Red Blood Cells Perc 0.0 % (0.0-0.2); Platelet Count Result 393 k/mm3 (150-375); Red Blood Count 4.05 M/mm3 (4.2-5.4); White Blood Count 6.5 K/mm3 (4.5-10.0)
--- OUTSIDE RECORDS SUMMARY | 2024-11-04 14:29 | XMS_ITS | Patient Health Record ---
Author Organization [facility] Address [address] [facility] [address], [place] [id number] Care Team Providers Care Emd Teacher Name Role Phone KELLEY GARCIA MD Primary Care Provider Unav ailable Peter, Akgun Unavailable [phone] ZoMarj traore Unavailable [phone] ALLERGIES Allergen (clinical drug ingredient) Drug/Non Drug Allergy documented on EMR Reaction Allergy Type Onset Date Status amoxicillin amoxicillin Rash Drug Allergy Act carmen doxycycline doxycycline Severe diarrhea Drug Allergy Active Keflex (uncoded) Nausea/vomiting Allergy Active Penicillin (uncoded) Rash Allergy Active RESULTS Component Value Reference Range Notes Complement C4, Serum Reviewed date:07/18/2024 02:49:43 PM Interpretation: Performing Lab:[employer] [facility], [address] [facility], Phone - [phone], Director - Piyush Notes/Report: Complement C4, Serum 25 12-38 mg/dL CBC With Differential/Platel et Reviewed date:07/19/2024 09:53:13 AM Interpretation: Performing Lab:[facility] [employer], [address] [facility], Phone - [phone], Director - Piyush Notes/Report: WBC 11.4 3.4-10.8 [...] Westergren Reviewed date:07/18/2024 02:49:43 PM Interpretation: Performing Lab:[employer] [address], Phone - [phone], Director - [facility] Notes/Report: Sedimentation Rate-Westergren 14 0-32 mm/hr Complement C3, Serum Reviewed date:07/18/2024 02:49:43 PM Interpretation: Performing Lab:[facility] [address], Phone - [phone], Director - [facility] Notes/Report: Complement C3, Serum 127 82-167 mg/dL Rheumatoid Arthritis Factor Reviewed date:07/18/2024 02:49:43 PM Interpretation: Performing Lab:[facility] [facility] [employer] [address], Phone - [phone], Director - [facility] Notes/Report: Rheumatoid Factor (RF) <10.0 <14.0 IU/mL C-Reactive Protein, Quant Reviewed date:07/18/2024 02:49:43 PM Interpretation: Performing Lab:[facility] [address], Phone - [phone], Director - [facility] Notes/Report: C-Reactive Protein, Quant 2 0-10 mg/L RUTH,transfer serum, temp Reviewed date:07/18/2024 02:49:43 PM Interpretation: Performing [facility], [address] [facility], Phone - [phone], Director - [facility] Notes/Report: RUTH, Serum 65 14-82 U/L Anticardiolip Ab, IgA/G/M, Q n Reviewed date:07/18/2024 02:49:43 PM Interpretation: Performing Lab:[facility], [address] [place] [address], Phone - [phone], Director - [facility] Notes/Report: Anticardiolipin Ab,IgG,Qn <9 0-14 GPL [...] ,M Reviewed date:07/18/2024 02:49:43 PM Interpretation: Performing Lab:[facility], [address] [place] [address], Phone - [phone], Director - [facility] Notes/Report: Beta-2 Glycoprotein I Ab, IgG [...] Antibodies Reviewed date:07/18/2024 02:49:43 PM Interpretation: Performing Lab:[facility] [facility] [employer] [place] [facility], Phone - [phone], Director - [facility] Notes/Report: Anti-CCP Ab, IgG/IgA 8 0-19 units Negative <20 Weak positive 20 - 39 Moderate positive 40 - 59 Strong positive >59 Comp. Metabolic Panel (14) Reviewed date:07/18/2024 02:49:56 PM Interpretation: Performing Lab:[facility] [place] [employer], Phone - [phone], Director - [facility] Notes/Report: Glucose 172 70-99 mg/dL BUN [...] Troy+SjoSSB) Reviewed date:07/18/2024 02:51:09 PM Interpretation: Performing Lab:[facility] [place] [employer] [facility], Phone - [phone], Director - [facility] Notes/Report: CHHAYA by IFA Rfx Titer/Pattern Negative Negative <1:80 Borderline 1:80 Positive >1:80 ICAP nomenclature: AC-0 For more information about Hep-2 cell patterns use ANApatterns.org, the official website for the International Consensus on Antinuclear Antibody (CHHAYA) Patterns (ICAP). DEPUTY CHIEF COUNSEL Antibodies <0.2 0.0-0.9 AI Priest Antibodies <0.2 0.0-0.9 AI Antiscleroderma-70 Antibodies <0.2 0.0-0.9 AI Sjogren's Anti-SS-A <0.2 0.0-0.9 AI Sjogren's Anti-SS-B <0.2 0.0-0.9 AI DS DNA-CRITHIDIA IFA W/REFLE X [facility] Reviewed date:07/18/2024 02:51:50 PM Interpretation: Performing Lab:[facility] [place], [place] [address], Phone - [phone], Director - [facility] Notes/Report: dsDNA Crithidia luciliae IFA Negative Negative Urinalysis, Complete Reviewed date:07/18/2024 02:50:49 PM Interpretation: Performing Lab[facility] [address] [place] [address], Phone - [phone], Director - [facility] Notes/Report: Specific [place] 1.011 1.005-1.030 pH 7.0 5.0-7.5 Urine-Color Yellow [...] lt Reviewed date:07/18/2024 02:51:43 PM Interpretation: Performing Lab:[facility], [address] [place], [place] [address]ox [facility], Phone - [phone], Director - [facility] Notes/Report: Prothrombin Time 11.1 Reference Range: 18 years and older: 9.1 - 12.0 INR 1.0 Reference Range: >1 month: 0.9 - 1.2 APTT 26.6 This test has not been validated for monitoring unfractionated heparin therapy. aPTT-based therapeutic ranges for unfractionated heparin therapy have not been established. Consider ordering Heparin anti-Xa (unfractionated). Reference Range: 18 years and older: 22.9 - 30.2 APTT 1:1 DIRECTOR ENTER[employer]ISE DATA ARCHITECTURE TNP Testing Not Indicated This test was [...] repeat testing may be indicated. Please contact [employer] if further clarification is needed. Pathologist Interpretation TNP All results are within the adult reference range and therefore pathology interpretation is not indicated. Complement Component 5 Reviewed date:07/18/2024 02:50:54 PM Interpretation: Performing Lab:[facility] [place], [address] [facility], Phone - [phone], [facility] Notes/Report: Complement Component 5 16 7-20 mg/dL Normal C5 concentration suggests sufficient C5 protein level. In rare cases, C5 complement protein can be nonfunctional but present at normal levels. If clinically indicated, testing for C5 functional activity is suggested (test code [id number]). ANCA Profile Reviewed date:07/19/2024 10:08:21 AM Interpretation: Performing Lab:[facility] [place], [address] [facility], Phone - [phone], [facility] Notes/Report: Anti-MPO Antibodies 1.3 0.0-0.9 units Anti-PR3 Antibodies <0.2 0.0-0.9 units Cytoplasmic (C-ANCA) <1:20 Neg:<1:20 titer Perinuclear (P-ANCA) <1:20 Neg:<1:20 titer The presence of positive fluorescence exhibiting P-ANCA or C-ANCA patterns alone is not specific for the diagnosis of Rocael's Granulomatosis (WG) or microscopic polyangiitis. Decisions about treatment should not be based solely on ANCA IFA results. The International ANCA Group Consensus recommends follow up testing of positive sera with both GA-3 and MPO-ANCA enzyme immunoassays. As many as 5% serum samples are positive only by EIA. Ref. AM J Clin Pathol 1999;111:507-513. Atypical pANCA <1:20 Neg:<1:20 titer The atypical pANCA pattern has been observed in a significant percentage of patients with ulcerative colitis, primary sclerosing cholangitis and autoimmune hepatitis. REASON FOR REFERRAL No Information MEDICATIONS Medication SIG (Take, Route, Frequency, Duration) Notes Start Date End Date Status Probiotics orally as directed Active Alpha Lipoic Acid 100 mg 1 cap(s) orally 2 times a day Active DHEA 25 mg 1 cap(s) orally once a day Active Melatonin 5 mg 1 tab(s) orally once a day Active Curcumin 95 500 mg 1 cap(s) orally once a day Active vitamin E 400IU Active Metanx Vitamin B Complex 1 cap(s) orally once a day Active fish oil oral EPA 600mg DHA 450mg Active Plaquenil 200 mg 1 tab(s) orally twic e a day Active Nicotinamide Dietary Supplement 300mg Active iron oral 10.5mg Active Calcium 600 mg Activ e magnesium glycinate 200 mg 2 tab(s) orally once a day Active metFORMIN 500 mg 1 tab(s) orally 2 ti mes a day Active prednisone 10 mg 1 tab(s) orally once a day Active levothyroxine 137 mcg (0.137 mg) 1 tab(s) orally once a day Active Lovenox 40 mg/0.4 mL as directed subcutaneously once a day Active Vitamins as directed Active aspirin 81 mg 1 tab(s) orally once a day Active sertraline 100 mg 1 tab(s) orally once a day Active CoQ10 100 mg 3 cap(s) orally once a day Active Vitamin D 4,000IU Active PROBLEMS Problem Type ICD Code Onset Dates Problem Status W/U Status Risk SNOMED Code Notes Problem Panniculitis (M79.3) Active confirmed 62230403 Problem Endometritis (N71.9) Active confirmed 58989286 VITAL SIGNS Heart Rate 105 /min 07/23/2024 Blood pressure diastolic 78 mm Hg 07/23/2024 Height 64 in 07/23/2024 Blood pressure systolic 133 mm Hg 07/23/2024 Weight 210 lbs 07/23/2024 BMI 36.04 kg/m2 07/23/2024 Encounters Encounter Location Date Provider Diagnosis [facility], [address] [place] [address], [address] [phone] 07/04/2024 Marj Zobrist Panniculitis M79.3 ; Endometritis N71.9 ; Facial rash R21 and Polyarthralgia M25.50 [facility], [address] [place] [address], [address] [id number] 07/23/2024 Marj Zobrist Endometritis N71.9 a nd Panniculitis M79.3 [facility], [address] [place] [address], [address] [phone] 07/15/2024 Presley [facility] ASSESSMENTS Encounter Date Diagnosis Assessment Notes Treatment Notes Treatment Clinical Notes Section Notes 07/04/2024 Panniculitis (ICD-10 - M79.3) 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 On prednisone 10mg, and HCQ per [facility]. Referred back to rule out CTD given facial rash. Prior serologies were negative for inflammatory arthropathy/CTD. Will re-evaluate today. Check chest Xray to rule out sarcoidosis. F/u scheduled for 10 days. 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 On prednisone 10mg, and HCQ per [facility]. Referred back to rule out CTD given facial rash. Prior serologies were negative for inflammatory arthropathy/CTD. Will re-evaluate today. Check chest Xray to rule out sarcoidosis. F/u scheduled for 10 days. 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 Currently on prednisone 10mg, and HCQ per [facility]. Serologies for inflammatory arthropathy/CTD were unremarkable. At this time, I do not suspect autoimmune rheumatologic disease. Advised that we can monitor MPO-3 abs, but likely cross reactive. I do not suspect vasculitis. Chest Xray negative. 07/23/2024 Endometritis (ICD-10 - N71.9) 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 Currently on prednisone 10mg, and HCQ per [facility]. Serologies for inflammatory arthropathy/CTD were unremarkable. At this time, I do not suspect autoimmune rheumatologic disease. Advised that we can monitor MPO-3 abs, but likely cross reactive. I do not suspect vasculitis. Chest Xray negative. 07/04/2024 Facial rash (ICD-10 - R21) 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 On prednisone 10mg, and HCQ per [facility]. Referred back to rule out CTD given facial rash. Prior serologies were negative for inflammatory arthropathy/CTD. Will re-evaluate today. Check chest Xray to rule out sarcoidosis. F/u scheduled for 10 days. 07/04/2024 Polyarthralgia (ICD-10 - M25.50) 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 On prednisone 10mg, and HCQ per [facility]. Referred back to rule out CTD given facial rash. Prior serologies were negative for inflammatory arthropathy/CTD. Will re-evaluate today. Check chest Xray to rule out sarcoidosis. F/u scheduled for 10 days. PLAN OF TREATMENT Pending Test Test Name Order Date Complement C4, Serum 01/24/2023 Complement, Total (CH50) 01/24/2023 TSH 01/24/2023 CBC With Differential/Platelet 3 Sed Rate - Westergren 01/24/2023 Complement C3, Serum 01/24/2023 Rheumatoid Arthritis Factor 01/24/2023 C-Reactive Protein, Quant 01/24/2023 HLA B 27 Disease Association 01/24/2023 RUTH,transfer serum,rm temp 01/24/2023 Lupus Anticoagulant Comprehens 3 Anticardiolip Ab, IgA/G/M, Qn 01/24/2023 ANCA Panel w/MPO/PR3 w/reflex to titer(D O NOT USE) 07/04/2024 Beta-2 Glycoprotein I Ab,G,A,M 3 CCP IgG Antibodies 01/24/2023 Comp. Metabolic Panel (14) 01/24/2023 CHHAYA Panel (CHHAYA+JUNIOR+Scl 70+SjoSSA+SjoSSB) 01/24/2023 URINALYSIS, COMPLETE 01/24/2023 X ray : Hand left- outside order 023 X ray : Hand right- outside order 2022 X ray : SI joints- outside order 023 X ray : Foot Left- outside order 023 X ray : Foot Right- outside order 2022 X ray : Chest, PA Lateral- outside order 01/24/2023 X ray : Chest, PA Lateral- outside order 07/04/2024 DS DNA ANTIBODY, CRITHIDIA, IFA W/REFL Q UEST 01/24/2023 Insurance Providers Payer Name Payer Address Payer Phone Subscriber Number Group Number Insured Name Patient Relationship to Insured Coverage Start Date Coverage End Date Yasir HAYDEN [address] [place] [address] [id number] Ayanna Sampson Self - patient is the insured 4 MEDICAL (GENERAL) HISTORY Medical History History ICD Code vision - flashes depression anxiety poor circulation asthma diarrhea gas bloating constipation tension headaches vision - halos dizziness anemia bleeding disorder neuropathy chest pain irritable bowel syndrome frequent urination abnormal pap smear bleeding between periods Surgical History Surgery Date(Month/Year) Thyroidectomy 2010 Salpingectomy & endometriosis excision 1 02/2023
--- OUTSIDE RECORDS SUMMARY | 2024-11-04 14:29 | XMS_ITS | Clinical Summary ---
Author Organization [facility] Address [address] [place] [address] Care Team Providers Care Trouble Tracer Name Role Phone Renee Abdalla MD Primary Care Provider Allergies Active Allergy Reactions Criticality Noted Date Comments Amoxicillin Rash Low 03/25/2013 Amoxicillin Hives High 12/02/2021 Cephalexin Nausea and Vomiting Low 03/25/2013 Cephalexin Hives High 12/02/2021 Doxycycline Diarrhea,Nausea and Vomiting High 2022 Penicillins Hives High 12/02/2021 Penicillins Rash Medium 03/25/2013 Medications sertraline (ZOLOFT) 100 mg tablet Take 100 mg by mouth daily. Active levothyroxine 137 mcg tablet Take 150 mcg by mouth daily in the morning. Active VIT-IRON FUM-FOLIC AC ORAL Take by mouth daily. Active melatonin 5 mg Tablet Take 3 mg by mouth nightly as needed. Active metFORMIN (GLUCOPHAGE) 500 mg tablet Take 500 mg by mouth 2 times daily with meals. Active hydroxychloroqu ine (PLAQUENIL) 200 mg tablet Take 200 mg by mouth daily. Active predniSONE (DELTASONE) 10 mg tablet Take 10 mg by mouth daily. Active aspirin (LOUISE CHEWABLE) 81 mg Tablet, Chewable Take 81 mg by mouth daily. Active vitamin E 1,000 unit Capsule Take 1,000 Units by mouth daily. Active ergocalciferol, vitamin D2, (VITAMIN D ORAL) Take by mouth. Activ e NADH, BULK, MISC by Misc.(Non-Drug; Combo Route) route. Active ferrous sulfate (IRON ORAL) Take by mouth. Act carmen omega-3 fatty acids-fish oil 300-1,000 mg Capsule Take by mouth daily. Active CALCIUM ORAL Take by mouth. Ac tive acai/chromium/t ea/caffeine/enz (ACAI GRAVES DIET ORAL) Take by mouth. Acti ve tacrolimus (PROGRAF) 1 mg capsule Take 1 mg by mouth 3 times daily. Active oxyCODONE (ROXICODONE) 5 mg tabletIndicatio ns:S/P laparoscopy Take 1 Tablet (5 mg) by mouth every 4 hours as needed. Max Daily Amount: 30 mg 10 Tablet 12/14/2023 2:56 PM DUST COLLECTOR ORE CRUSHING 4 Active Additional Information Patient not taking.Reason: Other (Comments) (completed), Reported on 11/04/2024 enoxaparin (LOVENOX) 40 mg/0.4 mL injection Inject 40 mg by subcutaneous injection one time only. 5 Active dexAMETHasone (DECADRON) 0.75 mg Tablet Take 1 Tablet by mouth daily. 5 Active Pregnyl 10,000 unit Recon Soln Inject 10,000 Units by intramuscular injection every Monday, Monday, and Monday. 4 Active Zepbound 5 mg/0.5 mL Pen Injector Inject 2.5 mg by subcutaneous injection every 7 days. Active Active Problems Problem Noted Date Diagnosed Date Endometritis 11/29/2023 Erythema nodosum 12/20/2022 Infertility, female 12/20/2022 Panniculitis 07/13/2012 Resolved Problems Problem Noted Date Diagnosed Date Resolved Date Contraception 10/17/2014 12/20/2022 Encounters Date Type Department Care Team Description 11/04/2024 1:30 PM CDT Office Visit [facility] Oncology and Hematology - [place] [address] [place] [phone] Christopher Leong MD Iron deficiency anemia, unspecified iron deficiency anemia type (Primary Dx) 10/28/2024 3:00 PM CDT Office Visit [facility] Minimally Invasive Gynecology [address] [facility] [address] [place] [address] Nikhil Anderson MD Dyschezia (Primary Dx); Pelvic adhesions; Endometritis 10/22/2024 9:39 AM CDT - 10/22/2024 11:59 PM CDT Hospital Encounter [facility] Center MRI [address] [place] [phone] Nikhil Anderson MD Discharge Disposition: Home or Self Care 10/22/2024 Results Follow-Up [facility] Invasive Gynecology [address] [place] [phone] Nikhil Anderson MD MRI PELVIS W WO CONTRAST 10/14/2024 Telephone [facility] Minimally Invasive Gynecology [address] [place] [phone] Nikhil Anderson MD Pain 09/17/2024 External Device Data STL ABSTRACTION Provider, Abstract 08/12/2024 7:59 AM CDT - 08/12/2024 11:59 PM CDT Hospital Encounter [facility] Mammography [address] [place] [phone] Lucy Reid DNP Discharge Disposition: Home or Self Care from Last 3 Months Family History Medical History Relation Name Comments Hypertension Father Prostate Cancer Maternal Grandfather Colon Cancer Maternal Grandmother Hereditary non-polyposis colon cancer Maternal Grandmo ther Liver Cancer Maternal Grandmother Healthy Mother Heart Disease Paternal Grandfather Psoriasis Paternal Grandmother Breast Cancer Neg Hx Ovarian Cancer Neg Hx Relation Name Status Comments Father Alive Maternal Grandfather Maternal Grandmother Mother Alive Paternal Grandfather Paternal Grandmother Social History Tobacco Use Types Packs/Day Years [...] file Not on file Not on file Last Filed Vital Signs Vital Sign Reading [...] oz) 11/04/2024 1:21 P M CDT Height 162.6 cm (5' 4) 10/28/2024 2:58 PM CDT Body Mass Index 35.63 10/28/2024 2:58 PM CDT Plan of Treatment Upcoming Encounters Date Type Department Care Team (Late st Contact Info) Description 11/12/2024 4:30 PM CDT Telephone Check Up [facility] Oncology and Hematology - [place] [address] [facility] [address] [place] [address] Christopher Leong MD [address] [facility] [address] [place] [address] Health Maintenance Due Date Last Done Comments Pre-Diabetes and Diabetes Screening 1981 DTAP/TDAP/TD VACCINES (1 - Tdap) 2000 HEPATITIS B VACCINES (1 of 3 - 19+ 3-dose series) 2000 HPV VACCINES (1 - 3-dose SCD M series) 2008 INFLUENZA VACCINE (#1) 2024 BREAST CANCER SCREENING 08/12/2025 08/13/19 25, 08/11/2023, 04/07/2022, Additional history exists PAP SMEAR 03/01/2027 03/01/2024, 12/07, 01/05/2022, Additional history exists CERVICAL CANCER SCREENING 03/01/2029 HPV/Cotest (-) 03/01/2029 03/01/2024, 1 02/19/2022, 01/05/2022, Additional history exists HPV/Cotest (30-65) 03/01/2029 03/01/2024, 1 02/19/2022, 01/05/2022, Additional history exists Preventative Visit- Commercial Completed 0 03/01/2024, 12/20/2022, 01/05/2022, Additional history exists Medical Devices Implanted Type Area Supervisor [employer] Device Identifier Shelf Expiration Date Model / Serial / Lot Barrier Interceed Adh 3x4in 4350 - [id number] Implanted:Qt y: 1 on 12/14/2023 by Nikhil Anderson MD at [facility] Adhesion Barrier Pelvis [employer] [id number] 05/06/2028 4350 / / [id number] Barrier Interceed Adh 3x4in 4350 - [id number] Implanted:Qt y: 1 on 12/14/2023 by Nikhil Anderson MD at [facility] Adhesion Barrier N/A: Pelvis [employer] [id number] 05/06/2028 4350 / / [id number] Flight Communications Officer Endoclip Iii 5mm W/Cliplogic [id number] - [id number] Implanted:Qt y: 1 on 12/14/2023 by Nikhil Anderson MD at [facility] Clip N/A: Pelvis [employer] [id number] 08/05/2026 [id number] / / [id number] Procedures Procedure Name Priority Date/Time Associated Diagnosis Comments MRI PELVIS W WO CONTRAST Routine 10/22/2024 10:43 AM CDT Endometriosis MAMMO 3D JARED SCREEN BILAT W OR WO CAD Routine 08/12/2024 8:23 AM CDT Screening mammogram for breast cancer CERV/VAG CYTO AGE BASED SCREEN PAP Routine 03/01/2024 1:54 PM DUST COLLECTOR ORE CRUSHING Screening for cervical cancer Encounter for screening for human papillomavirus (HPV) from Last 3 Months or Most Recently Relevant to Health Maintenance Results * MRI PELVIS W WO CONTRAST (10/22/2024 10:43 AM CDT) Anatomical Region Laterality Modality Pelvis Magnetic Resonan ce 10/22/2024 10:4 3 AM CDT Impressions 10/22/2024 11:52 AM CDT IMPRESSION: 1. Multiple discrete T2 hyperintense bands tethering the rectum, sigmoid colon and nearby uterosacral ligaments. There is a mildly nodular aspect of this bandlike tethering along the left sacrouterine ligament, however no infiltrating T2 intermediate signal is identified. Overall, these findings are favored to represent adhesions rather than infiltrating endometriosis. 2. 7 mm T1 hyperintense deposit along the right ovary compatible with a small endometrioma. There is an additional tiny adjacent T1 hyperintense deposit that likely represents an additional focus of endometriosis. Tiny T1 hyperintense deposit along the left aspect of the broad ligament lateral to the lower uterine segment may represent another tiny deposit. 3. Small fundal intramural fibroid. DICTATION LOCATION: Location 1 - [facility] 10/22/2024 11:52 AM CDT EXAMINATION: MRI OF THE PELVIS WITHOUT AND WITH IV CONTRAST DATE: 10/22/2024 10:43 AM HISTORY: 44-year-old with endometriosis. Prior surgery for endometriosis demonstrated extensive involvement of the peritoneum in the pelvis. COMPARISON: No prior pelvic MRI. PROCEDURE: MR of the pelvis was performed prior to and after the uneventful administration of 19 mL ProHance gadolinium contrast according to endometriosis protocol. FINDINGS: Pelvic cavity: The uterus is anteverted and anteflexed measuring 8 cm in length, 3.8 cm anteroposterior and 4.1 cm transverse. The junctional zone is within normal limits. There is a posterior fundal T2 hypointense intramural fibroid measuring 9 x 7 mm (series 5, image 20; series 7, image 10). No other uterine mass. Physiologic follicles are noted in both ovaries. In the right ovary, there is a 7 mm T1 hyperintense deposit with T2 intermediate signal (series 13, image 12; series 4, image 16) compatible with endometrioma. There is an additional tiny T1 hyperintense implant just inferior to this that likely represents an additional site of endometriosis (series 13, image 14). No specific findings of endometriosis involving the left ovary. However, there is a tiny T1 hyperintense deposit along the left aspect of the broad ligament (series 13, image 20) just lateral to the lower uterine segment. The anterior peritoneal lining is normal in appearance. The peritoneal surface of the urinary bladder demonstrates no discrete nodular thickening or evidence of infiltration, although the bladder is decompressed which partially limits evaluation. The uterosacral ligaments are normal in signal intensity and thickness. However, in the cul-de-sac, there are multiple discrete T2 hypointense bands that tether the rectum and sigmoid colon to each other and to the nearby uterosacral ligaments (series 4, images 20-26). This nodular aspect of this bandlike tethering is located along the left sacrouterine ligament (series 4, image 21) measuring 6 x 4 mm. The discrete T2 hyperintense bandlike appearance is stable represent adhesions given the absence of T2 intermediate infiltrating signal. No evidence of bowel wall involvement. Bladder: Decompressed, otherwise within normal limits.. Bowel: Tethering of the sigmoid and rectum as described above. Otherwise within normal limits.. Lymph nodes: No pelvic lymphadenopathy.. Other findings: No suspicious osseous lesion.. Procedure Note Carlos Ortega MD - 10/22/2024 EXAMINATION: MRI OF THE PELVIS WITHOUT AND WITH IV CONTRAST DATE: 10/22/2024 10:43 AM HISTORY: 44-year-old with endometriosis. Prior surgery for endometriosis demonstrated extensive involvement of the peritoneum in the pelvis. COMPARISON: No prior pelvic MRI. PROCEDURE: MR of the pelvis was performed prior to and after the uneventful administration of 19 mL ProHance gadolinium contrast according to endometriosis protocol. FINDINGS: Pelvic cavity: The uterus is anteverted and anteflexed measuring 8 cm in length, 3.8 cm anteroposterior and 4.1 cm transverse. The junctional zone is within normal limits. There is a posterior fundal T2 hypointense intramural fibroid measuring 9 x 7 mm (series 5, image 20; series 7, image 10). No other uterine mass. Physiologic follicles are noted in both ovaries. In the right ovary, there is a 7 mm T1 hyperintense deposit with T2 intermediate signal (series 13, image 12; series 4, image 16) compatible with endometrioma. There is an additional tiny T1 hyperintense implant just inferior to this that likely represents an additional site of endometriosis (series 13, image 14). No specific findings of endometriosis involving the left ovary. However, there is a tiny T1 hyperintense deposit along the left aspect of the broad ligament (series 13, image 20) just lateral to the lower uterine segment. The anterior peritoneal lining is normal in appearance. The peritoneal surface of the urinary bladder demonstrates no discrete nodular thickening or evidence of infiltration, although the bladder is decompressed which partially limits evaluation. The uterosacral ligaments are normal in signal intensity and thickness. However, in the cul-de-sac, there are multiple discrete T2 hypointense bands that tether the rectum and sigmoid colon to each other and to the nearby uterosacral ligaments (series 4, images 20-26). This nodular aspect of this bandlike tethering is located along the left sacrouterine ligament (series 4, image 21) measuring 6 x 4 mm. The discrete T2 hyperintense bandlike appearance is stable represent adhesions given the absence of T2 intermediate infiltrating signal. No evidence of bowel wall involvement. Bladder: Decompressed, otherwise within normal limits.. Bowel: Tethering of the sigmoid and rectum as described above. Otherwise within normal limits.. Lymph nodes: No pelvic lymphadenopathy.. Other findings: No suspicious osseous lesion.. IMPRESSION: 1. Multiple discrete T2 hyperintense bands tethering the rectum, sigmoid colon and nearby uterosacral ligaments. There is a mildly nodular aspect of this bandlike tethering along the left sacrouterine ligament, however no infiltrating T2 intermediate signal is identified. Overall, these findings are favored to represent adhesions rather than infiltrating endometriosis. 2. 7 mm T1 hyperintense deposit along the right ovary compatible with a small endometrioma. There is an additional tiny adjacent T1 hyperintense deposit that likely represents an additional focus of endometriosis. Tiny T1 hyperintense deposit along the left aspect of the broad ligament lateral to the lower uterine segment may represent another tiny deposit. 3. Small fundal intramural fibroid. DICTATION LOCATION: Location 1 [facility] Nikhil Anderson MD MR ORDERABLES Final Result * MAMMO 3D JARED SCREEN BILAT W OR WO CAD (08/12/2024 8:23 AM CDT) Anatomical Region Laterality Modality Breast Bilateral Mammography 08/12/2024 8:23 AM CDT Impressions 08/12/2024 8:51 AM CDT IMPRESSION: No mammographic evidence of malignancy. RECOMMENDATIONS: Routine screening mammogram in one year. DICTATION LOCATION: [facility] 08/12/2024 8:51 AM CDT BILATERAL FULL-FIELD DIGITAL SCREENING MAMMOGRAM WITH CAD WITH 3D TOMOSYNTHESIS DATE: 08/12/2024 8:23 AM HISTORY: Routine screening. TECHNIQUE: Full-field digital craniocaudal and mediolateral oblique projections of both breasts were obtained. Low-dose full-field digital breast tomosynthesis examination was performed with 2D and 3D acquisitions. Examination is read in conjunction with computer aided detection. COMPARISON: 2023, 2022, 2020 BREAST COMPOSITION: The breasts are heterogeneously dense, which may obscure small masses. FINDINGS: No suspicious mass, suspicious microcalcifications, or architectural distortion in either breast is identified. Since the prior study, there has been no significant interval change. The computer aided diagnosis detects no significant abnormality. OVERALL FINAL ASSESSMENT: BI-RADS CATEGORY 1: Negative. Lucy Reid [facility] MAMMO ORDERABLES Final Resu lt * (ABNORMAL) CERV/VAG CYTO AGE BASED SCREEN PAP (03/01/2024 1:54 PM DUST COLLECTOR ORE CRUSHING) COMMENT (PAP): [facility] Comment: This order for age-based cervical cancer and STI screening follows ACOG guidelines(PB 168, 140, LDD752). See individual assays for performing site location. CLINICAL INFORMATION [facility] Comment:Routine exam LAST MENSTRUAL PERIOD [facility] Comment:NONE GIVEN PREV PAP: [facility] Comment:NONE GIVEN PREV BX: [facility] Comment:NONE GIVEN SOURCE [facility] Comment:Endocervix ADEQUACY: [facility] Comment: Age and/or menstrual status not provided Satisfactory for evaluation. Endocervical/transformation zone component present. GENERAL CATEGORIZATION: (A) [facility] Comment:Cytology Results: Ep ithelial Cell Abnormality PAP INTERP (A) [facility] Comment:Low Grade Squamous I ntraepithelial Lesion (LSIL) COMMENT (PAP TEST) [facility] [place] Comment: This Pap test has been evaluated with computer assisted technology. Suggest clinical correlation and follow-up as clinically appropriate WATER MECHANIC: Terri est [facility] [place] Comment: BES, CT(ASCP) CT screening location: [place] [address] [place] [address] PATHOLOGIST [facility] Comment: [employer] M.D., Board Certified in Anatomic Pathology and Cytopathology. (electronic signature) EXPLANATORY NOTE [facility] [place] Comment: EXPLANATORY NOTE: The Pap is a screening test for cervical cancer. It is not a diagnostic test and is subject to false negative and false positive results. It is most reliable when a satisfactory sample, regularly obtained, is submitted with relevant clinical findings and history, and when the Pap result is evaluated along with historic and current clinical information. HPV E6/E7 Detected( A) Not Detected [facility] [place] Comment: Methodology: Grain Distributor-Mediated Amplification This assay detects E6/E7 viral messenger RNA (mRNA) from 14 high-risk HPV types (16,18,31,33,35,39,45,51,52,56,58,59,66,68). Cervical sources are required for HPV testing. If a vaginal source from a patient who has had a total hysterectomy with removal of cervix was submitted, please contact the testing laboratory for alternative testing options. For additional information, please refer to http://education.Coinkite/faq/IPS856j2 (This link if provided for information/ educational purposes only.) Test Performed at: [facility] [id number] [place] [phone] David DEVLIN Genital SWAB OF ENDOCERVIX / Unknown 03/01/2024 1:54 PM DUST COLLECTOR ORE CRUSHING 03/02/2024 2:26 AM DUST COLLECTOR ORE CRUSHING Lucy Reid [facility] PATHOLOGY/CYTOLOGY ORDERABL ES Final Result [facility] [phone] [facility] [address] [phone] from Last 3 Months or Most Recently Relevant to Health Maintenance Insurance Functional Neuromodulation Commercial RX GENERIC COMMERCIAL Commercial RX PRIME THERAPEUTICS Commercial RX Functional Neuromodulation Commercial BLUE CROSS AND BLUE SHIELD [facility] [email or web address] PREFERRED Sealed [place] [address] [address] [email or web address] PREFERRED Advance Directives For more information, please contact: [phone] * Full Code (Latest Code Status on File) Date Activated Date Inactivated Comments 12/14/2023 7:48 AM 12/14/2023 6:52 PM Care Teams Trouble Tracer Relationship Specialty Start Date End Date Renee Abdalla MD [address] [facility] [address] [address] [place] [phone] PCP - General Family Practice 06/26/22
--- OUTSIDE RECORDS SUMMARY | 2024-11-04 14:29 | XMS_ITS | Encounter Summary ---
Author Organization [facility] Address [address] [place] [address] Care Team Providers Care Family Program Specialist Name Role Phone Renee Abdalla MD Primary Care Provider [phone] Encounter Details Date Type Department Care Team ([facility] Contact Info) Description 10/22/2024 Results Follow-Up [facility] Minimally Invasive Gynecology [address] [place] [phone] Nikhil Anderson MD [address] [facility] [place] [address] MRI PELVIS W WO CONTRAST Social History Tobacco Use Types Packs/Day Years Used Date Smoking Tobacco: Never Smokeless Tobacco: Never Alcohol Use Standard Drinks/Week Comments Yes 0 [...] on file documented as of this encounter Plan of Treatment Upcoming Encounters Date Type Department Care Team ([facility] st Contact Info) Description 11/12/2024 4:30 PM CDT Telephone Check Up [facility] Oncology and Hematology - [place] [address] [place] [address] Christopher Leong MD [address] [facility] [address] [place] [phone] documented as of this encounter Visit Diagnoses Not on filedocumented in this encounter Care Teams Family Program Specialist Relationship Specialty Start Date End Date Renee Abdalla MD [facility] [facility] [address] [place] [address] PCP - General Family Practice 06/26/22 documented as of this encounter
[2024-11-04 17:01] LABS: Alanine Aminotransferase 18 U/L (6-35); Albumin Level 4.1 g/dL (3.5-5.1); Alkaline Phosphatase 57 U/L (38-126); Anion Gap 7 mmol/L (4-12); Aspartate Amino Transferase 51 U/L (14-36); Bilirubin,Total 0.4 mg/dL (0.2-1.3); Blood Urea Nitrogen 22 mg/dL (7-17); Calcium 8.4 mg/dL (8.4-10.2); Carbon Dioxide 26 mmol/L (22-30); Chloride 105 mmol/L (98-107); Estimated Glomerular Filt Rate > 60; Glucose 95 mg/dL (65-110); Iron 56 ug/dL (37-170); Potassium 4.3 mmol/L (3.4-5.0); Sodium 138 mmol/L (137-145); Total Protein 6.5 g/dL (6.3-8.2)
[2024-11-04 17:10] LABS: Percent Iron Saturation 16 % (20-50)
[2024-11-04 17:42] LABS: Ferritin 15.20 ng/mL (6.24-137)
== END 2024-11-04 13:58 | disposition home or self-care (01) ==
LOC: ANHLAB 13:58
PROVIDERS: PCP Family Medicine; Visit Provider Internal Medicine Hematology & Oncology
DX: D50.9 Iron deficiency anemia, unspecified (principal)
CPT/HCPCS: 36415; 80053; 82728; 83540; 83550; 84238; 85025